=== PATIENT | male | born 1965 | race Caucasian/White ===

== ENCOUNTER → 2018-04-24 11:09 | Outpatient (CLI) | payer OTHER, SELFPAY ==
[2018-04-24 12:00] LABS: ALB/GLOB Ratio 1.3 RATIO (0.9-2.4); AST(SGOT) 23 U/L (15-37); Alanine Aminotransfer ALT/SGPT 39 U/L (16-61); Albumin, Serum 3.9 g/dL (3.2-5.0); Alkaline Phosphatase 56 U/L (45-117); Anion Gap 6 (5-15); BUN 12 mg/dL (7-18); BUN/Creat Ratio 13.8 RATIO (10-20); Calcium,Total 8.8 mg/dL (8.5-10.1); Chloride 105 mmol/L (98-107); Cholesterol 166 mg/dL (200); Creatinine, Serum 0.87 mg/dL (0.70-1.30); EST Glomerular Filtration Rate 98 mL/min (>60); Est Glom Filt Rate - Afr Amer 118 mL/min (>60); Globulin 2.9 g/dL (2.2-4.2); Glucose 93 mg/dL (74-106); High Density Lipoprotein 37 mg/dL; PSA,Total - Annual Screen 0.47 ng/mL (0.00-4.00); Protein, Total 6.8 g/dL (6.4-8.2); Sodium Level 139 mmol/L (136-145); Triglycerides 109 mg/dL; Very Low Density Lipoprotein 22 mg/dL (5-40)
== END ==
PROVIDERS: Family Provider Family Medicine; PCP Family Medicine; Referring Provider Nurse Practitioner Family; Visit Provider Nurse Practitioner Family
DX: Z00.00 Encounter for general adult medical examination without abnormal findings (principal); Z12.5 Encounter for screening for malignant neoplasm of prostate
CPT/HCPCS: 36415; 80053; 80061; 84153; G0103

== ENCOUNTER 2018-06-27 09:14 | Emergency (ER) | payer OTHER, SELFPAY ==
[2018-06-27 09:14] VITALS: BP 165/88; PULSE 64; RESP 18; TEMP 36.6; O2SAT 100; BMI 30.7
--- NOTE | 2018-06-27 09:30 | RAD_ITS ---
STUDY: X-RAY - LEFT WRIST REASON FOR EXAM: Male, 52 years old. INJURY PAIN ANTERIOR SURFACE MID WRIST TECHNIQUE: 3 view(s) of the wrist were obtained. COMPARISON: None. FINDINGS: Normal visualized distal radius and ulna. Normal radiocarpal articulation. Normal distal radioulnar articulation. Normal carpal bones. Normal carpal articulations. Normal carpometacarpal articulation of the thumb. Normal second through fifth carpometacarpal articulations. Normal visualized metacarpal bones. The soft tissue structures are unremarkable. RAD/Wrist min 3 Views IMPRESSION: Normal x-ray examination of the wrist. Electronically Signed: Bertha Alfred MD at 10:10 EST , Service support ,
--- NOTE | 2018-06-27 10:23 | ED.VISSUMM ---
- ER Visit Summary Date of Service: 06/27/18 Chief Complaint: [Left wrist injury] History of Present Illness: The patient is a 52 M [presents the emergency department complaining of pain in his left wrist since last evening around 10 PM. 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 Since that time patient's been having pain with trying to grasp objects and dropping things. Patient complaining of pain over the volar aspect of the wrist. Patient is right-hand dominant.] Physical Examination: [HEENT-PERRLA, EOMI. Cranial nerves II through XII grossly intact. TMs clear. Mucous membranes moist. No adenopathy. Cardiovascular-regular rate and rhythm without murmur or ectopy Lungs-clear to auscultation, chest wall stable without crepitus or subcu emphysema Abdomen-normoactive bowel sounds, soft, nontender, no rebound or rigidity, no peritoneal signs. Extremities-intact ?4, normal range of motion, normal pulses. Left wrist-there is some mild diffuse soft tissue swelling. Patient has tenderness palpation diffusely over the volar carpal bones. Patient able to flex and extend all digits however he has pain with flexion of the index, long, and ring finger. No obvious deformity.] Test Results: [X-ray of the left wrist obtained were negative for fracture dislocation.] Emergency Department Course and Treatment: [Patient was given a wrist splint.] Treatment Plan: [Patient given a prescription for naproxen and [place] for severe pain. Patient given work restrictions.] Disposition: [Discharged home stable condition. Patient advised to follow-up with [facility] for follow-up in 5-7 days.] Impression: [Left wrist sprain] This note was generated with [employer] dictation software. It may contain incorrect words, spelling, and punctuation that were not noted in review of the chart prior to signing ED Disposition - Plan for ED Patient: Chief Complaint: Upper Extremity Injury Referrals: Tristen Garcia MD [Primary Care Provider] -
--- NOTE | 2018-06-27 10:25 | ED.DEP ---
ED Disposition - Plan for ED Patient: Chief Complaint: Upper Extremity Injury Instructions: ED Sprain Wrist Prescriptions: Hydrocodone Bitart/Apap 5-325 [[place] 5MG-325MG] 1 tab PO Q4H PRN PRN 2 Days #10 tab PRN Reason: Pain Naproxen [Naprosyn] 500 mg PO BID PRN #20 tab Referrals: Tristen Garcia MD [Primary Care Provider] - [facility] [GROUP OF PHYSICIANS] - 5-7 Days
--- NOTE | 2018-06-27 10:28 | DCINST.ED_ITS ---
ED Disposition - Plan for ED Patient: Chief Complaint: Upper Extremity Injury Instructions: ED Sprain Wrist Prescriptions: Hydrocodone Bitart/Apap 5-325 [[place] 5MG-325MG] 1 tab PO Q4H PRN PRN 2 Days #10 tab PRN Reason: Pain Naproxen [Naprosyn] 500 mg PO BID PRN #20 tab Referrals: Tristen Garcia MD [Primary Care Provider] - [facility] [GROUP OF PHYSICIANS] - 5-7 Days
[2018-06-27 10:54] VITALS: BP 147/90; PULSE 52; RESP 14; O2SAT 97
--- OUTSIDE RECORDS SUMMARY | 2018-09-01 00:22 | XMS RPT_ITS ---
:1965 Author Organization OHIP Care Team Providers Name Role Phone TRISTEN WATSON Primary Care Unavailable Erika Haro Attending Unavailable Dash Mccall Attending Unavailable TRISTEN WATSON Referring Unavailable Dottie Kwon Attending Unavailable Dottie Kwon Referring Unavailable TRISTEN WATSON Primary Care Unavailable PROBLEMS PROBLEMS DATE TYPE CONDITION / CODE ATTENDING STATUS SOURCE 06/27/2018 Unknown S63.509A - Estrellita, Remus Active [place] Unspecified [facility] unspecified Repository wrist, initial encounter / S63.509A(ICD-10) PROCEDURES PROCEDURES No Procedure Records FoundRESULTS RESULTS URGENT CARE VISIT Observed: 07/02/2018 Status: F Source: ROXIE REPORT 1:47 PM [facility] REPOSITORY [facility] [address] [place] [address] [address] [place] [address] OFFICE VISIT Date of Service: 07/02/18 MR#: [id number] Acct: [id number] Name: SHAVON ATKINS Rep #: [id number] : 1965 Provider: Dash BRICENO Age/Sex: 52/M Location: [facility] Status: Signed Intake Vital Signs07/02/18 Body Mass Index (BMI) 30.7 07/02/18 Height 5 ft 11 in 07/02/18 Weight: 220 lb 07/02/18 Body Mass Index (BMI) 30.7 07/02/18 Blood Pressure 128/86 H Intake Visit Reasons: ED FOLLOW UP Mobile Marketing Specialist Required: No Accompanied by: self Is patient in pain?: No Allergies No Known Allergies Allergy (Verified 07/02/18 13:09) Medications budesonide-formoterol HFA 80 mcg-4.5 mcg/actuation aerosol inhaler 2 puff INHALATION BID 07/02/18 [History Confirmed 07/02/18] nebivolol 2.5 mg tablet 2.5 mg PO DAILY 07/02/18 [History Confirmed 07/02/18] [facility] Medical History Hypertension (Chronic) Family History Other Heart disease Myocardial infarction Social History Smoking Status: Never smoker alcohol intake: current HPI HPI Details: SHAVON ATKINS, is a 52 M who presents to the office today for follow-up of a work-related injury which occurred on 06/26/2018. Patient initially evaluated at [facility] ED and found to have a left wrist sprain after negative imaging. Patient states today that his left wrist pain has completely resolved after having his wrist crack 2 days ago. He denies any numbness/tingling or loss of range of motion to the hand. No other associated symptoms or alleviating/aggravating factors. ROS Const Constitutional: Positive for other (Full ROS completed with pertinent findings in the HPI. Otherwise negative.) Exam Const General: cooperative, healthy appearing Skin General: no rashes or lesions noted Neuro General: alert, CN's II-XI intact bilaterally Extrem General: normal to inspection, full ROM, normal capillary refill, no joint enlargement Other: No pain to palpation of the left wrist. Psych Appearance: grossly normal Mental Status: mental status grossly normal Assessment AND Plan Problems 1. Unspecified sprain of left wrist, initial encounter S63.502A Status Acute Plan [employer] 14 filled out releasing patient back to work today without restrictions. Patient advised he no longer needs a follow-up in this office unless he should have an exacerbation of symptoms or new concerns. Patient verbalized understanding and agreement with all the above. Coding Level of Care Code Off vis,new,level 3 Diagnoses Unspecified sprain of left wrist, initial encounter S63.502A 07/02/18 1347 <Electronically signed by Dash BRICENO> Date Dash BRICENO Cosigner Signature: Date (if applicable) CC: DISCHARGE INSTRUCTION Observed: 06/27/2018 Status: F Source: ROXIE 10:28 AM [facility] REPOSITORY [facility] Medical Records Department [address] [place] [address] Discharge Instruction 06/27/18 1025 MR#: [id number] Acct: [id number] Name: SHAVON ATKINS Rep #: [id number] : 1965 52 From: Erika Haro DO PCP: Tristen Watson MD Status: REG ER ED Disposition - Plan for ED Patient: Chief Complaint: Upper Extremity Injury Instructions: ED Sprain Wrist Prescriptions: Hydrocodone Bitart/Apap 5-325 [[place] 5MG-325MG] 1 tab PO Q4H PRN PRN 2 Days #10 tab PRN Reason: Pain Naproxen [Naprosyn] 500 mg PO BID PRN #20 tab Referrals: Tristen Watson MD [Primary Care Provider] - [facility] [GROUP OF PHYSICIANS] - 5-7 Days What to do if you have Problems For any increased pain, shortness of breath, bleeding, nausea or vomiting, chest pain, or any unexpected problems, contact your Primary Care Provider. Call [facility] ([phone]) or report to the closest Emergency Room. Call 911 if necessary. 06/27/18 1028 <Electronically signed by Erika Haro DO> Date Erika Haro DO Cosigner Signature (If Indicated): Date CC: Tristen Watson MD EMERGENCY DEPARTMENT Observed: 06/27/2018 Status: F Source: MOSCOW SUMMARY 10:25 AM [facility] REPOSITORY [facility] Medical Records Department [address] [place] [address] Emergency Department Summary 06/27/18 1023 MR#: [id number] Acct: [id number] Name: SHAVON ATKINS Rep #: [id number] : 1965 52 From: Erika Haro DO PCP: Tristen Watson MD Status: REG ER - ER Visit Summary Date of Service: 06/27/18 Chief Complaint: [Left wrist injury] History of Present Illness: The patient is a 52 M [presents the emergency department complaining of pain in his left wrist since last evening around 10 PM. 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 Since that time patient's been having pain with trying to grasp objects and dropping things. Patient complaining of pain over the volar aspect of the wrist. Patient is right-hand dominant.] Physical Examination: [HEENT-PERRLA, EOMI. Cranial nerves II through XII grossly intact. TMs clear. Mucous membranes moist. No adenopathy. Cardiovascular-regular rate and rhythm without murmur or ectopy Lungs-clear to auscultation, chest wall stable without crepitus or subcu emphysema Abdomen-normoactive bowel sounds, soft, nontender, no rebound or rigidity, no peritoneal signs. Extremities-intact 4, normal range of motion, normal pulses. Left wrist-there is some mild diffuse soft tissue swelling. Patient has tenderness palpation diffusely over the volar carpal bones. Patient able to flex and extend all digits however he has pain with flexion of the index, long, and ring finger. No obvious deformity.] Test Results: [X-ray of the left wrist obtained were negative for fracture dislocation.] Emergency Department Course and Treatment: [Patient was given a wrist splint.] Treatment Plan: [Patient given a prescription for naproxen and [place] for severe pain. Patient given work restrictions.] Disposition: [Discharged home stable condition. Patient advised to [facility] for follow-up in 5-7 days.] Impression: [Left wrist sprain] This note was generated with [employer] dictation software. It may contain incorrect words, spelling, and punctuation that were not noted in review of the chart prior to signing ED Disposition - Plan for ED Patient: Chief Complaint: Upper Extremity Injury Referrals: Tristen Watson MD [Primary Care Provider] - What to do if you have Problems For any increased pain, shortness of breath, bleeding, nausea or vomiting, chest pain, or any unexpected problems, contact your Primary Care Provider. Call [facility] ([phone]) or report to the closest Emergency Room. Call 911 if necessary. 06/27/18 1025 <Electronically signed by Erika Haro DO> Date Erika Haro DO Cosigner Signature (If Indicated): Date CC: Tristen Watson MD WRIST MIN 3 VIEWS Observed: 06/27/2018 Status: F Source: MOSCOW 9:30 AM [facility] REPOSITORY [facility] Imaging Services [address] [place] [address] Wrist min 3 Views MR#: [id number] Acct: [id number] Name: SHAVON ATKINS Rep #: [id number] : 1965 M 52 From: Bertha Alfred MD PCP: Tristen Watson MD Status: PRE ER Study: Wrist min 3 Views Date of Exam: 06/27/18 Exam# [id number] Ordering Dr: Erika Haro DO STUDY: X-RAY - LEFT WRIST REASON FOR EXAM: Male, 52 years old. INJURY PAIN ANTERIOR SURFACE MID WRIST TECHNIQUE: 3 view(s) of the wrist were obtained. COMPARISON: None. FINDINGS: Normal visualized distal radius and ulna. Normal radiocarpal articulation. Normal distal radioulnar articulation. Normal carpal bones. Normal carpal articulations. Normal carpometacarpal articulation of the thumb. Normal second through fifth carpometacarpal articulations. Normal visualized metacarpal bones. The soft tissue structures are unremarkable. RAD/Wrist min 3 Views IMPRESSION: Normal x-ray examination of the wrist. Electronically Signed: Bertha Alfred MD at 10:10 EST , Service support , CC: Erika Haro DO; Tristen Watson MD Marketing Campaign Analyst: Signed COMPREHENSIVE METABOLIC Collected: 04/24/2018 Status: F Source: ROXIE PROFIL 11:14 AM [facility] REPOSITORY TYPE CODE TESTS RESULT OUT OF RANGE REFERENCE UNITS LAB L501.0100 74-106 mg/dL Normal GLU 93 Result Comment: Please note revised GLUCOSE reference range effective 2017. LAB L501.1000 7-18 mg/dL Normal BUN 12 LAB L501.1100 0.70-1.30 mg/dL Normal CREAT,SERUM 0.87 Result Comment: The validity of the calculated GFR AND GFRAA in patients over 70 years has not been determined. Clinical correlation is essential. LAB L501.1110 >60 mL/min Normal EST GFR 98 Result Comment: Non- GFR Calc LAB L501.1115 >60 mL/min Normal EST GFR - AA 118 Result Comment: GFR Calc LAB L501.1300 10-20 RATIO Normal BUN/CRE 13.8 LAB L501.1500 6.4-8.2 g/dL T Normal PROT 6.8 LAB L501.1800 3.2-5.0 g/dL Normal ALB 3.9 LAB L501.1950 2.2-4.2 g/dL Normal GLOB 2.9 LAB L501.2000 0.9-2.4 RATIO Normal A/G 1.3 LAB L501.2200 8.5-10.1 mg/dL CA Normal 8.8 LAB L501.4100 15-37 U/L Normal AST 23 LAB L501.4305 45-117 U/L Normal ALK P 56 LAB L501.4405 16-61 U/L Normal ALT 39 LAB L501.4600 0.20-1.00 mg/dL T Normal BILI 0.50 LAB L501.5300 136-145 mmol/L NA Normal 139 LAB L501.5600 3.5-5.1 mmol/L K Normal 4.0 LAB L501.5900 98-107 mmol/L CL Normal 105 LAB L501.6100 21.0-32.0 mmol/L Normal CO2 28.0 LAB L501.6200 5-15 Normal GAP 6 Performed By: #### L500.4050, L500.4100, L501.9910 #### [facility] Laboratory [address] [facility] [facility] [place], [address] LIPID PROFILE Collected: 04/24/2018 Status: F Source: MOSCOW 11:14 AM [facility] REPOSITORY TYPE CODE TESTS RESULT OUT OF RANGE REFERENCE UNITS LAB L501.4900 200 mg/dL Normal CHOL 166 Result Comment: <200 mg/dL Desirable 200-240 mg/dL Borderline >240 mg/dL High Risk LAB L501.5000 mg/dL Normal TRIG 109 Result Comment: The drugs N-Acetylcysteine and Metamizole may falsely depress this assay. Serum Triglycerides Reference Interval Normal <150 mg/dL Borderline high 150 - 199 mg/dL High 200 - 499 mg/dL Very High > or = 500 mg/dL LAB L501.6400 mg/dL Low HDL 37 Result Comment: The drugs N-Acetylcysteine and Metamizole may falsely depress this assay. Reference Range HDL <40 mg/dL Low HDL Cholesterol HDL >or= 60 mg/dL High HDL Cholesterol LAB L501.6500 0-130 mg/dL Normal LDL 107 LAB L501.6600 5-40 mg/dL Normal VLDL 22 Performed By: #### L500.4050, L500.4100, L501.9910 #### [facility] Laboratory [address] [place], [address] PSA,TOTAL - ANNUAL Collected: 04/24/2018 Status: F Source: ROXIE SCREEN 11:14 AM [facility] REPOSITORY TYPE CODE TESTS RESULT OUT OF RANGE REFERENCE UNITS LAB L501.9910 0.00-4.00 ng/mL Normal PSA,TOT 0.47 SCREEN Result Comment: This test was performed using the TPSA assay method for the Neuravi chemistry system. Values obtained with different assay methods cannot be used interchangably. When changing PSA assays in the course of monitoring a patient, additional sequential testing should be carried out to confirm baseline values. Performed By: #### L500.4050, L500.4100, L501.9910 #### [facility] Laboratory [address] [place], [address] ALLERGIES ALLERGIES DATE TYPE / CODE NAME / CODE REACTION SEVERITY SOURCE 07/02/2018 Drug No Known Unknown [facility] Allergy/4160 Allergies/F00 Hospital 00596(SNOMED 3338997(RXNOR Repository CT) M) ENCOUNTERS ENCOUNTERS ADMIT/DISCHARGE ACCOUNT ADMITTING ENCOUNTER LOCATION SOURCE NUMBER CLASS 07/02/2018/ [id number] Ambulatory BMSBuilding:B [place] 9 4 [place].NOW [facility] Repository 06/27/2018/ [id number] Emergency Rox[place] 9 3 [facility] ing:ED Repository 04/24/2018 [id number] Ambulatory [place] 9 [facility] ing:LAB Repository PAYERS PAYERS ENCOUNTER GUARANTOR PAYER SUBSCRIBER SOURCE 07/02/2018 SHAVON Luke Primary Insurance:Flavio [id number] [place] [address]Czsfak MARKFERMINDOB: [facility] [place]: [id number] [id number] Repository [address]Otv: (330) Date:0653-42-17SU [phone] () [place], [place] [address]BT: 07/02/2018 Secondary NOT GIVENUNK [place] Insurance:SELF PAY [facility] Number: Effective Repository Date:2018-07-02 06/27/2018 SHAVON L Primary SHAVON L [place] [id number] Insurance:SELF INS MARKLEYDOB: [facility] KASSY [facility] [place] CHATTANOOGAPolicy [id number] [place], [place] Number: Repository [address]Pmx: [phone] [phone] (HP) Date:6569-22-68ELEGM [facility] HOSPITALChandler [facility] [address], [place] [address]FI: 06/27/2018 Secondary SHAVON L [place] Insurance:[facility] OTIS ELYSSAMARIKAB: [facility] [address]blec Number: [id number] Hospital [id number] Repository Date:1648-85-43TZ [address] [place] [phone]: 06/27/2018 Tertiary NOT GIVENUNK [place] Insurance:SELF PAY [facility] Number: Effective Repository Date:2018-06-27 04/24/2018 SHAVON L Primary Insurance:[facility] SHAVON L [place] [id number] [facility] [address]Cjeurr MARKLEYDOB: [facility] KASSY Number: [id number] [id number] Repository [address]Qox: 330) Date:7834-29-89BQ [phone] () [address] [place] [phone]: 04/24/2018 Secondary NOT GIVENUNK [place] Insurance:SELF PAY [facility] Number: Effective Repository Date:2018-04-24
== END 2018-06-27 10:55 | disposition home or self-care (01) ==
LOC: ED 10:12
PROVIDERS: Emergency Provider Emergency Medicine; Family Provider Family Medicine; PCP Family Medicine
DX: S63.502A Unspecified sprain of left wrist, initial encounter (principal); X50.1XXA Overexertion from prolonged static or awkward postures, initial encounter; Y93.89 Activity, other specified; Y92.9 Unspecified place or not applicable; Y99.0 Civilian activity done for income or pay; J45.909 Unspecified asthma, uncomplicated; I10 Essential (primary) hypertension; Z79.899 Other long term (current) drug therapy
CPT/HCPCS: 73110; 99283

== ENCOUNTER → 2019-08-11 11:14 | Outpatient (CLI) | payer OTHER, SELFPAY ==
[2018-07-02 13:23] VITALS: BMI 30.7
[2019-08-11 12:03] LABS: ALB/GLOB Ratio 1.2 RATIO (0.9-2.4); AST(SGOT) 25 U/L (15-37); Alanine Aminotransfer ALT/SGPT 47 U/L (16-61); Alkaline Phosphatase 64 U/L (45-117); Anion Gap 7 (5-15); BUN 14 mg/dL (7-18); BUN/Creat Ratio 14.8 RATIO (10-20); Calcium,Total 9.6 mg/dL (8.5-10.1); Chloride 103 mmol/L (98-107); Cholesterol 201 mg/dL (200); Creatinine, Serum 0.94 mg/dL (0.70-1.30); EST Glomerular Filtration Rate 88 mL/min (>60); Est Glom Filt Rate - Afr Amer 107 mL/min (>60); Globulin 3.3 g/dL (2.2-4.2); Glucose 100 mg/dL (74-106); High Density Lipoprotein 40 mg/dL; PSA,Total - Annual Screen 0.46 ng/mL (0.00-4.00); Potassium 4.1 mmol/L (3.5-5.1); Protein, Total 7.3 g/dL (6.4-8.2); Sodium Level 138 mmol/L (136-145); Triglycerides 157 mg/dL; Very Low Density Lipoprotein 31 mg/dL (5-40)
== END ==
PROVIDERS: PCP Family Medicine; Referring Provider Nurse Practitioner Family; Visit Provider Nurse Practitioner Family
DX: E78.2 Mixed hyperlipidemia (principal); Z12.5 Encounter for screening for malignant neoplasm of prostate
CPT/HCPCS: 36415; 80053; 80061; 84153; G0103

== ENCOUNTER → 2020-05-19 06:41 | Outpatient (CLI) | payer OTHER, SELFPAY ==
[2019-09-25 11:38] VITALS: BMI 30.7
--- NOTE | 2020-05-21 13:12 | STRESSREP_ITS ---
Stress Test Report Date: 05/19/2020 Procedure: Pharmacologic stress nuclear imaging study Indications: Chest pain Consent: Per the patient Procedure: The patient underwent pharmacologic (Regadenoson) evaluation with a peak heart rate of 72 beats per minute (43%predicted maximal heart rate) and a peak blood pressure of 146/78 mmHg. The baseline ECG demonstrated normal sinus rhythm. EKG during lexiscan infusion revealed no significant ischemic changes. EKG post infusion revealed no significant ischemic changes [There were no cardiac dysrhythmias pretest, during pharmacologic infusion, or recovery]. [There was no complaint of chest discomfort during pharmacologic infusion or recovery]. The examination was discontinued secondary to completion of protocol. Impression: 1. Lexiscan stress test test is negative for Lexiscan infusion induced EKG changes of ischemia. 2. Lexiscan stress test test is negative for Lexiscan infusion induced chest pain. 3. Results of the nuclear portion of the test is as below Myocardial perfusion imaging study: Technique: The patient was injected with 14.3 millicuries of technetium 99m Cardiolite and subsequently rest SPECT Cardiolite nuclear imaging was obtained in the horizontal long, vertical long, and short axis views. The patient underwent pharmacologic (Regadenoson) evaluation. Please see above for details. The patient was injected with 44.6 millicuries of technetium 99m Cardiolite and subsequently stress SPECT Cardiolite nuclear imaging was obtained in the horizontal long, vertical long, and short axis views. A gated Cardiolite study at peak stress was obtained. Interpretation: Rest and stress SPECT Cardiolite nuclear imaging status post realignment, normalization, and attenuation correction demonstrate normal myocardial radioisotope uptake. Gated images reveal no significant regional wall motion abnormalities. The reported LVEF is 69%. Impression: 1. There is no evidence of significant ischemia or infarction. 2. Estimated ejection fraction is 69%. This note was generated with [employer] software. It may contain incorrect words, spelling, and punctuation that were not noted in checking the note before signing.
== END ==
PROVIDERS: PCP Family Medicine; Referring Provider Family Medicine; Visit Provider Family Medicine
DX: R07.89 Other chest pain (principal); R06.02 Shortness of breath; E78.2 Mixed hyperlipidemia
CPT/HCPCS: 78452; 93017; A9500; A4216; J2785

== ENCOUNTER → 2021-04-04 06:35 | Outpatient (CLI) | payer OTHER, SELFPAY ==
[2021-04-04 07:52] LABS: ALB/GLOB Ratio 1.2 RATIO (0.9-2.4); AST(SGOT) 20 U/L (15-37); Alanine Aminotransfer ALT/SGPT 34 U/L (16-61); Albumin, Serum 3.6 g/dL (3.2-5.0); Alkaline Phosphatase 52 U/L (45-117); Anion Gap 5 (5-15); BUN 12 mg/dL (7-18); BUN/Creat Ratio 14.5 RATIO (10-20); Calcium,Total 9.2 mg/dL (8.5-10.1); Chloride 109 mmol/L (98-107); Cholesterol 183 mg/dL (200); Creatinine, Serum 0.83 mg/dL (0.70-1.30); EST Glomerular Filtration Rate 103 mL/min (>60); Est Glom Filt Rate - Afr Amer 124 mL/min (>60); Glucose 93 mg/dL (74-106); High Density Lipoprotein 44 mg/dL; PSA,Total - Annual Screen 0.52 ng/mL (0.00-4.00); Potassium 4.1 mmol/L (3.5-5.1); Protein, Total 6.6 g/dL (6.4-8.2); Sodium Level 142 mmol/L (136-145); Triglycerides 138 mg/dL; Very Low Density Lipoprotein 28 mg/dL (5-40)
== END ==
PROVIDERS: PCP Family Medicine; Referring Provider Family Medicine; Visit Provider Family Medicine
DX: Z13.1 Encounter for screening for diabetes mellitus (principal); Z12.5 Encounter for screening for malignant neoplasm of prostate; E78.2 Mixed hyperlipidemia
CPT/HCPCS: 36415; 80053; 80061; 84153; G0103

== ENCOUNTER → 2022-05-19 | Outpatient (CLI) | payer OTHER, SELFPAY ==
[2022-05-19 08:58] LABS: ALB/GLOB Ratio 1.3 RATIO (0.9-2.4); AST(SGOT) 20 U/L (15-37); Alanine Aminotransfer ALT/SGPT 43 U/L (16-61); Alkaline Phosphatase 55 U/L (45-117); Anion Gap 4 (5-15); BUN 15 mg/dL (7-18); BUN/Creat Ratio 16.5 RATIO (10-20); Calcium,Total 9.8 mg/dL (8.5-10.1); Chloride 104 mmol/L (98-107); Cholesterol 183 mg/dL (200); Creatinine, Serum 0.91 mg/dL (0.70-1.30); EST Glomerular Filtration Rate 92 mL/min (>60); Est Glom Filt Rate - Afr Amer 111 mL/min (>60); Glucose 94 mg/dL (74-106); High Density Lipoprotein 34 mg/dL; PSA,Total - Annual Screen 0.45 ng/mL (0.00-4.00); Potassium 4.4 mmol/L (3.5-5.1); Sodium Level 137 mmol/L (136-145); Triglycerides 127 mg/dL; Very Low Density Lipoprotein 25 mg/dL (5-40)
== END | disposition home or self-care (01) ==
LOC: LAB 06:55
PROVIDERS: PCP Family Medicine; Visit Provider Family Medicine
DX: E78.2 Mixed hyperlipidemia (principal); Z12.5 Encounter for screening for malignant neoplasm of prostate
CPT/HCPCS: 36415; 80053; 80061; 84153; G0103

== ENCOUNTER 2022-12-08 05:29 | Day surgery (SDC) | payer OTHER, SELFPAY ==
[2022-12-08 05:58] VITALS: BP 139/85; PULSE 51; RESP 18; TEMP 36.4; O2SAT 96; BMI 28.7
[2022-12-08] MEDS: Lactated Ringers 1,000 ML 15 ML IV (06:13)
--- NOTE | 2022-12-08 06:30 | COLBX_PTH ---
PATIENT: SHAOVN ATKINS LOC: EN U#:[id number] AGE/SX: 57/M ROOM: RE12/08/[address]: Dr. Dusty Woodard DO : 1965 BED: DIS: 12/08/2022 SPEC #: [id number] RECD: 12/08/22 12:09 STATUS: ELAINE CURRY #: [id number] LEONELA: 12/08/22 06:[address]: Dusty Woodard DEPT: SURGICAL PATHOLOGY RECD BY: Evelyn Lange ENTERED: 12/08/22 12:57 SP TYPE: COLON BX NIKO DR: Dr. Magdiel Mendoza DO Tissues: A - COLON BIOPSY B - Transverse colon C - Sigmoid colon biopsy D - COLON BIOPSY E - Rectum, NOS Procedures: Surgery Specimen Level IV HEADER OPERATION: Colonoscopy (MAC), polypectomy PRE-OP DIAGNOSIS: Positive Cologuard test TISSUE SUBMITTED: A - Hepatic flexure polyp, B - Transverse colon polyp, C - Sigmoid colon polyp, D - Splenic flexure polyp, E - Rectal polyp MICROSCOPIC DIAGNOSIS A. 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 See comment. B. Transverse colon polyp, biopsy: Tubulovillous adenoma. C. Sigmoid colon polyp, biopsy: Tubular adenoma. D. Colonic polyp at splenic flexure, biopsy: Fragments of tubular adenoma. E. Rectal polyp, biopsy: Fragments of tubular adenoma. AM:jessi 12/11/2022 COMMENT A. Focal high-grade dysplasia is present close to the luminal surface. Case has been reviewed in consultation with Dr. Gaviria who concurs with the above diagnosis. IDC:SJ MICROSCOPIC DESCRIPTION Slides are reviewed. GROSS DESCRIPTION A - Received in fixative is one container labeled with the patient's name and designated hepatic flexure polyp. The specimen consists of multiple irregular fragments of pink-chaves soft tissue that in aggregate measure 2.5 x 1.8 x 1.2 cm. The two larger fragments are bisected and submitted long with the smaller fragments in two cassettes as follows: 1 - largest fragment, bisected, 2 - second largest fragment, inked and remainder of specimen. B - Received in fixative is one container labeled with the patient's name and designated transverse colon polyp. The specimen consists of multiple irregular and polypoid fragments of pink-chaves soft tissue ranging in size from 0.1 to 3.0 cm in aggregate measuring 9.5 x 2.0 x 2.0 cm. The specimen is totally submitted in ten cassettes as follows: 1-4 - smaller fragments, 5 & 6 - second largest fragment, serially sectioned, 710 - largest fragment, serially sectioned. Note, no distinct stalk is identified. C - Received in fixative is one container labeled with the patient's name and designated sigmoid colon polyp. The specimen consists of a polypoid fragment of chaves tissue measuring 1.0 x 0.7 x 0.3 cm. The specimen is bisected and totally submitted in one cassette. D - Received in fixative is one container labeled with the patient's name and designated splenic flexure polyp. The specimen consists of a polypoid fragment of chaves tissue measuring 1.0 x 0.6 x 0.3 cm. The specimen is bisected and totally submitted in one cassette. E - Received in fixative is one container labeled with the patient's name and designated rectal polyp. The specimen consists of multiple irregular fragments of light chaves soft tissue that in aggregate measure 1.5 x 0.5 x 0.1 cm. The specimen is totally submitted in one cassette. / AM:jessi 12/08/2022 TC:1 CPT: 64159 x5
--- NOTE | 2022-12-08 06:31 | HP.PCM_ITS ---
History and Physical Date of Admission: 12/08/22 56 M who presents to the office today for positive Cologuard. No prior colonoscopy. At the time of the cologuard he was having some abd discomfort which he thinks was due to naprosyn which he was taking for back pain, after stopping the nsaid the abd discomfort resolved. No nausea, vomiting, dysphagia, heartburn, acid reflux, abd pain, diarrhea, constipation, melena, hematochezia. 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 ROS Const Constitutional: No fatigue, fever(s), frequent falls, headache(s) or weight change ENT ENT: No headache(s) or difficulty swallowing Cardio Cardiology: No leg pain with exertion Gastro GI: No abdominal pain, bloating, change in bowel habits, constipation, diarrhea, heartburn, difficulty swallowing, Vomiting blood/hematemesis, Blood in stool, nausea/dyspepsia or vomiting Musc Musculoskeletal: No abnormal gait, joint pain, back pain, joint swelling, muscle cramps, muscle weakness, numbness, stiffness, tingling, Arthritis, sciatica, leg pain at night or leg pain with exertion Skin Skin: No dry skin, lesions, itchy eyes or rash Neuro Neurology: No abnormal gait, dizziness, frequent falls, headache(s), numbness, tingling, tremor(s), Increased tone in limbs, paralysis or seizures Psych Psychiatric: No anxiety, No depression, No paranoia, No Behavioral Problems, No Compulsive Behavior, No hyperactivity, No inattentiveness, No obsessions/compulsions, No Temper Tantrums and No suicidal ideation Endo Endocrine: No fatigue or weight change Aller/Imm Allergy/Immunologic: No itchy eyes Jeffrey/Lymp Hematologic/Lymphatic: No easy bleeding or easy bruising Exam Const General: cooperative and comfortable Nutritional Appearance: overweight Orientation: alert, awake and oriented x3 Quality Reporting Tobacco Screening ([facility]) Smoking Status: Never smoker Assessment and Plan Assessment and Plan (1) Positive colorectal cancer screening using Cologuard test: Status: Acute Plan: He will be scheduled for colonoscopy w/ office f/u 2 wks later I have examined the patient and the H&P has been reviewed. There are no clinical changes since date of exam.
[2022-12-08 07:49] VITALS: BP 114/73; BP 139/85; PULSE 46; RESP 18; TEMP 35.9; O2SAT 95
[2022-12-08 07:50] VITALS: BP 107/72; BP 139/85; PULSE 48; RESP 18; O2SAT 100
--- NOTE | 2022-12-08 07:53 | OP.COLON_ITS ---
Patient Name: Rafael Ace Procedure Date: 12/08/2022 6:19 AM Date of : 1965 Age: 57 Procedure: Colonoscopy Indications: Screening for colorectal malignant neoplasm Providers: Dusty Woodard DO Referring MD: Dusty Woodard DO Medicines: Monitored Anesthesia Care Patient Profile: This is a 57 year old male. Refer to note in patient chart for documentation of history and physical. Last Colonoscopy: none. The patient's first colonoscopy is today. Complications: No immediate complications. Procedure: Pre-Anesthesia Assessment: - Prior to the procedure, a History and Physical was performed, and patient medications and allergies were reviewed. The patient is competent. The risks and benefits of the procedure and the sedation options and risks were discussed with the patient. All questions were answered and informed consent was obtained. Patient identification and proposed procedure were verified by the physician. Mental Status Examination: normal. Prophylactic Antibiotics: The patient does not require prophylactic antibiotics. Prior Anticoagulants: The patient has taken no previous anticoagulant or antiplatelet agents. After reviewing the risks and benefits, the patient was deemed in satisfactory condition to undergo the procedure. The anesthesia plan was to use minimal sedation / analgesia (anxiolysis). Immediately prior to administration of medications, the patient was re-assessed for adequacy to receive sedatives. The heart rate, respiratory rate, oxygen saturations, blood pressure, adequacy of pulmonary ventilation, and response to care were monitored throughout the procedure. The physical status of the patient was re-assessed after the procedure. After I obtained informed consent, the scope was passed under direct vision. Throughout the procedure, the patient's blood pressure, pulse, and oxygen saturations were monitored continuously. The colonoscope was introduced through the anus and advanced to the cecum, identified by appendiceal orifice and ileocecal valve. The colonoscopy was performed without difficulty. The patient tolerated the procedure well. The quality of the bowel preparation was adequate. Scope In: 6:39:47 AM Scope Withdrawal Time 0 hours 58 minutes 16 seconds Scope Out: 7:41:44 AM Total Procedure Duration Time 1 hour 1 minute 57 seconds Findings: The perianal and digital rectal examinations were normal. Multiple sessile polyps were found in the rectum, sigmoid colon, splenic flexure, transverse colon and hepatic flexure. The polyps were 1 to 2 mm in size. These polyps were removed with a hot snare. Resection and retrieval were complete. Verification of patient identification for the specimen was done. To prevent bleeding post-intervention, three hemostatic clips were successfully placed. There was no bleeding at the end of the procedure. Area was successfully injected with 5 mL Karen ink for tattooing. Estimated blood loss was minimal. Impression: - Multiple 1 to 2 mm polyps in the rectum, in the sigmoid colon, at the splenic flexure, in the transverse colon and at the hepatic flexure, removed with a hot snare. Resected and retrieved. Clips were placed. Injected. Recommendation: - Repeat colonoscopy in 1 year for surveillance. - Continue present medications. Procedure Code(s): --- Professional --- 21494, Colonoscopy, flexible; with removal of tumor(s), polyp(s), or other lesion(s) by snare technique 68157, Colonoscopy, flexible; with directed submucosal injection(s), any substance CPT copyright 2017 [employer]. All rights reserved. The codes documented in this report are preliminary and upon senior care assistant review may be revised to meet current compliance requirements. Dusty Woodard DO 12/08/2022 7:52:05 AM This report has been signed electronically. Number of Addenda: 0 Note Initiated On: 12/08/2022 6:19 AM
--- NOTE | 2022-12-08 07:53 | OP.CCLET_ITS ---
12/08/2022 Magdiel Mendoza Re : Colonoscopy procedure for Rafael Mendoza This procedure was performed on Thursday, December 08, 2022. My impressions and recommendations are as follows: Impressions : - Multiple 1 to 2 mm polyps in the rectum, in the sigmoid colon, at the splenic flexure, in the transverse colon and at the hepatic flexure, removed with a hot snare. Resected and retrieved. Clips were placed. Injected. Recommendations : - Repeat colonoscopy in 1 year for surveillance. - Continue present medications. My findings are described in the full procedure note, which is enclosed. If I can be of further assistance, please feel free to contact me at . Sincerely, Dusty Woodard, 12/08/2022 7:52:05 AM This report has been signed electronically.
[2022-12-08 07:55] VITALS: BP 110/75; BP 139/85; PULSE 55; RESP 18
[2022-12-08 08:02] VITALS: BP 128/74; BP 139/85; PULSE 47; RESP 18; TEMP 36.2; O2SAT 100
[2022-12-08 08:28] VITALS: BP 139/85
== END 2022-12-08 08:52 | disposition home or self-care (01) ==
LOC: EN 05:32 → AC 05:33
PROVIDERS: PCP Family Medicine; Referring Provider Family Medicine; Visit Provider Internal Medicine Gastroenterology
PROC: 0DJD8ZZ Inspection of Lower Intestinal Tract, Via Natural or Artificial Opening Endoscopic (ICD-10-PCS; CPT 45378; principal; 2022-12-08 06:25)
DX: Z12.11 Encounter for screening for malignant neoplasm of colon (principal); D12.3 Benign neoplasm of transverse colon; D12.5 Benign neoplasm of sigmoid colon; D12.8 Benign neoplasm of rectum; R19.5 Other fecal abnormalities; I10 Essential (primary) hypertension; E78.5 Hyperlipidemia, unspecified; E66.3 Overweight; Z68.28 Body mass index [BMI] 28.0-28.9, adult; Z79.899 Other long term (current) drug therapy
CPT/HCPCS: 45385; 45381; 88305; J7120; A4648; J2405

== ENCOUNTER → 2023-01-08 | Outpatient (CLI) | payer OTHER, SELFPAY ==
--- NOTE | 2023-01-08 16:00 | CT_ITS ---
EXAM: CT ABDOMEN AND PELVIS WITH INTRAVENOUS CONTRAST CLINICAL INDICATION: large polyp with high grade dysplagia TECHNIQUE: Helically acquired images were obtained of the abdomen and pelvis with intravenous contrast. This CT exam was performed using one or more of the following dose reduction techniques: automated exposure control, adjustment of the mA and/or kV according to patient size, and/or use of iterative reconstruction technique. CONTRAST: 100 cc of Isovue-300 IV. With oral contrast. RADIATION DOSE: CTDIvol = 13.31 mGy, DLP = 840.00 mGy-cm COMPARISON: No relevant prior studies available. FINDINGS: LOWER THORAX: Unremarkable. Lung bases are clear. No cardiomegaly. No significant pericardial effusion. ABDOMEN: LIVER: Unremarkable. Homogeneous. No focal mass. GALLBLADDER AND BILE DUCTS: Unremarkable. No calcified gallstones. No gallbladder distention or wall edema. No intra- or extrahepatic biliary ductal dilation. PANCREAS: Unremarkable. No focal cystic or solid mass. SPLEEN: Unremarkable. Normal size without focal cystic or solid mass. ADRENALS: Unremarkable. No nodules. KIDNEYS AND URETERS: Unremarkable. Normal renal size and position. No hydronephrosis. STOMACH AND BOWEL: Unremarkable. No stomach or bowel distention. No focal inflammatory change. PELVIS: APPENDIX: Normal appendix. BLADDER: Unremarkable. REPRODUCTIVE: Unremarkable as visualized. No mass. ABDOMEN and PELVIS: INTRAPERITONEAL SPACE: Unremarkable. No ascites or other fluid collection. No free air. BONES/JOINTS: Unremarkable. No suspicious lytic or blastic abnormality. SOFT TISSUES: Unremarkable. No discrete abdominal or pelvic wall hernia. VASCULATURE: Unremarkable. Abdominal aorta is non-dilated. LYMPH NODES: Mild mesenteric edema multiple borderline enlarged lymph nodes in the jejunal mesentery. CT/Abdomen/Pelvis WITH Contrast IMPRESSION: Mild mesenteric edema multiple borderline enlarged lymph nodes in the jejunal mesentery. Differential diagnosis includes mesenteric panniculitis, lymphoma, and vascular disorders. Electronically Signed: Roby Bolaños MD at 4:49 EDT ,
[2023-01-08 16:39] LABS: CREATININE FINGERSTICK 1.2 mg/dL (0.70-1.30); EGFR FINGERSTICK > 60.0000 mL/min (>60)
== END | disposition home or self-care (01) ==
PROVIDERS: PCP Family Medicine; Referring Provider Internal Medicine Gastroenterology; Visit Provider Internal Medicine Gastroenterology
DX: K63.5 Polyp of colon (principal)
CPT/HCPCS: 74177; Q9967; A4216

== ENCOUNTER → 2023-02-07 | Outpatient (CLI) | payer OTHER, SELFPAY ==
[2023-02-07 15:57] LABS: Erythrocyte Sedimentation Rate 4 mm/hr (0-20)
[2023-02-07 16:00] LABS: Absolute Lymphocyte Count 1.81 X10^3/uL (0.83-4.51); Basophil# 0.05 X10^3/uL; Basophil% 0.7 % (0-1); Eosinophil# 0.44 X10^3/uL; Eosinophils% 6.5 % (0-5); Hemoglobin 14.1 g/dL (13.0-16.5); Lymphocyte # 1.81 X10^3/ul (0.83-4.51); Lymphocyte % 26.9 % (19-41); Mean Corpuscular Hgb 30.5 pg (27.0-32.0); Mean Platelet Vol. 9.1 fl (6.2-12.0); Monocyte# 0.44 X10^3/uL; Monocyte% 6.5 % (0-10); NRBC Flagged by Analyzer 0 % (0-5); Neutrophil # 3.97 X10^3/uL (2.7-7.7); Neutrophil % 59.1 % (47-70); Platelet Count 216 K/mm3 (150-450); RBC Distribution Width CV 13.7 % (11.6-14.6); RBC Distribution Width SD 47.8 fl (35.1-43.9); Red Blood Count 4.63 M/mm3 (4.6-6.2); White Blood Count 6.7 K/mm3 (4.4-11.0)
[2023-02-07 16:27] LABS: ALB/GLOB Ratio 1.2 RATIO (0.9-2.4); AST(SGOT) 20 U/L (15-37); Alanine Aminotransfer ALT/SGPT 39 U/L (16-61); Albumin, Serum 3.7 g/dL (3.2-5.0); Alkaline Phosphatase 63 U/L (45-117); Anion Gap 6 (5-15); BUN 18 mg/dL (7-18); BUN/Creat Ratio 18.1 RATIO (10-20); CRP < 2.90 mg/L (0.0-3.0); Calcium,Total 9.9 mg/dL (8.5-10.1); Chloride 108 mmol/L (98-107); Creatinine, Serum 0.99 mg/dL (0.70-1.30); EST Glomerular Filtration Rate 82 mL/min (>60); Est Glom Filt Rate - Afr Amer 100 mL/min (>60); Globulin 3.1 g/dL (2.2-4.2); Glucose 113 mg/dL (74-106); LDH 193 U/L (87-241); Protein, Total 6.8 g/dL (6.4-8.2); Sodium Level 140 mmol/L (136-145)
[2023-02-09 12:09] LABS: Anti-Centromere B Ab <0.2 AI (0.0-0.9); Anti-Chromatin <0.2 AI (0.0-0.9); Anti-Jo <0.2 AI (0.0-0.9); Anti-Scleroderma-70 AB <0.2 AI (0.0-0.9); Anti-dsDNA Ab <1 IU/mL (0-9); RNP Ab <0.2 AI (0.0-0.9); SJOGREN'S Anti-SS-A test < 0.2 AI (0.0-0.9); SJOGREN'S Anti-SS-B test < 0.2 AI (0.0-0.9); Smith Ab <0.2 AI (0.0-0.9)
[2023-02-13 03:06] LABS: Albumin 3.8 g/dL (2.9-4.4); Alpha-1-Globulins 0.2 g/dL (0.0-0.4); Alpha-2-Globulins 0.7 g/dL (0.4-1.0); Cytoplasmic Ab (C-ANCA) <1:20 titer (Neg:<1:20); Endomysial Antibody IgA Negative (Negative); Gamma Globulin 0.7 g/dL (0.4-1.8); Immunoglobulin A 102 mg/dL (90-386); Immunoglobulin E 71 IU/mL (6-495); Immunoglobulin G 699 mg/dL (603-1613); Immunoglobulin M 48 mg/dL (20-172); PROEL- TOTAL PROTEIN 6.3 g/dL (6.0-8.5); Perinuclear Ab (P-ANCA) <1:20 titer (Neg:<1:20); t-Transglutaminase IgA <2 U/mL (0-3)
== END | disposition home or self-care (01) ==
PROVIDERS: PCP Family Medicine; Referring Provider Internal Medicine Gastroenterology; Visit Provider Internal Medicine Gastroenterology
DX: R93.5 Abnormal findings on diagnostic imaging of other abdominal regions, including retroperitoneum (principal)
CPT/HCPCS: 36415; 80053; 82784; 82785; 83516; 83615; 84165; 85025; 85652; 86140; 86225; 86235; 86255; 86256; 86334

== ENCOUNTER → 2023-02-28 | Outpatient (CLI) | payer OTHER, SELFPAY ==
[2023-03-07 15:09] LABS: Calprotectin, Stool 26 ug/g (0-120)
== END | disposition home or self-care (01) ==
LOC: LABSPEC 15:29
PROVIDERS: PCP Family Medicine; Referring Provider Internal Medicine Gastroenterology; Visit Provider Internal Medicine Gastroenterology
DX: R93.5 Abnormal findings on diagnostic imaging of other abdominal regions, including retroperitoneum (principal)
CPT/HCPCS: 83630; 83993

== ENCOUNTER 2023-03-01 06:44 | Day surgery (SDC) | payer OTHER, SELFPAY ==
[2023-03-01] VITALS (7 sets, daily range): BP systolic 98–138; BP diastolic 68–93; PULSE 43–52; RESP 16–18; TEMP 36.2–36.8; O2SAT 94–95; BMI 29.9
--- NOTE | 2023-03-01 | IMM_PTH ---
PATIENT: SHAVON ATKINS LOC: EN U#:[id number] AGE/SX: 57/M ROOM: RE03/01/[address]: Dr. Dusty Woodard DO : 1965 BED: DIS: 03/01/2023 SPEC #: [id number] RECD: 03/07/23 14:06 STATUS: ELAINE RESimona #: [id number] LEONELA: 03/01/23 00:[address]: Dusty Woodard DEPT: IMMUNOHISTOCHEMISTRY RECD BY: Renae Lopez ENTERED: 03/07/23 14:07 SP TYPE: IMMUNO OTHR DR: Dr. Magdiel Mendoza DO Tissues: A - Esophagus, NOS Procedures: P53 (initial) KI-67 (add) PHYSICIAN & INSTITUTION [place] [address] SPECIMEN INFORMATION: Tissue Source: A - Distal esophagus Clinical Info: History of colon polyps Specimen Number: [id number] CPT code: 78006, 55022 METHODOLOGY: Deparaffinized sections of prefer/formalin-fixed tissue or PAP/DQ stained slides are incubated with monoclonal/polyclonal antibodies/oligonucleotide probes. Localization is made via biotin free immunoperoxidase method. Appropriate controls are performed and reacted as expected. Results on target cell population are indicated in the following table: RESULTS: ANTIBODY / CLONE RESULT Block A P53 (DO-7) negative (null pattern) Ki-67 (30-9) positive, low These tests were developed and their performance characteristics determined by [facility]. They may not have been cleared or approved by the U.S. Food and Drug Administration. The FDA has determined that such clearance or approval is not necessary. The above immunohistochemical/dualISH markers are ordered and reviewed by the Pathologist. INTERPRETATION: A. Distal esophagus, biopsy: Negative for dysplasia. CYDNEY:jessi 03/08/2023
--- NOTE | 2023-03-01 | COLBX_PTH ---
PATIENT: SHAVON ATKINS LOC: EN U#:[id number] AGE/SX: 57/M ROOM: RE03/01/[address]: Dr. Dusty Woodard DO : 1965 BED: DIS: 03/01/2023 SPEC #: [id number] RECD: 03/01/23 09:30 STATUS: ELAINE CURRY #: [id number] LEONELA: 03/01/23 00:[address]: Dusty Woodard DEPT: SURGICAL PATHOLOGY RECD BY: Louis Baldwin ENTERED: 03/01/23 12:29 SP TYPE: COLON BX OTHR DR: Dr. Magdiel Mendoza DO Tissues: A - Esophagus, NOS B - Duodenum, NOS C - Sigmoid colon biopsy D - SPLENIC FLEXURE E - COLON BIOPSY F - Rectum, NOS Procedures: Surgery Specimen Level IV HEADER OPERATION: Colonoscopy, EGD, biopsy PRE-OP DIAGNOSIS: History colon polyps TISSUE SUBMITTED: A - Distal esophagus biopsy, B - Duodenal polyp biopsy, C - Sigmoid polyp biopsy, D - Splenic flexure polypectomy site biopsy, E - Hepatic flexure polyp biopsy, F - Rectal polyp MICROSCOPIC DIAGNOSIS A. Distal esophagus, biopsy: Fragments of gastroesophageal mucosa with focal intestinal metaplasia (goblet cell metaplasia), consistent with Amin's esophagus. Chronic inflammation. Negative for dysplasia. See comment. B. Duodenal polyp, biopsy: Fragments of duodenal mucosa with Phillip gland hyperplasia. C. Sigmoid polyp, biopsy: Tubular adenoma. D. Splenic flexure polypectomy site, biopsy: Fragments of colonic mucosa, no pathologic diagnosis. E. Hepatic flexure polyp, biopsy: Tubular adenoma. F. Rectal polyp, biopsy: Hyperplastic polyp. SJ:jessi 03/02/2023 COMMENT A. Alcian blue/PAS stain with matched control is used in the evaluation of the specimen. Immunohistochemistry ([id number]) for P53 and Ki-67 will be performed and results will be reported separately. Increased number of eosinophils (>25 per high power field), favor eosinophilic esophagitis. Please make reference to previous specimen ([id number]) colonic polyp at hepatic flexure, biopsy with diagnosis of fragments of tubulovillous adenoma with focal high-grade dysplasia and transverse colon polyp, biopsy with diagnosis of tubulovillous adenoma and sigmoid colon polyp with diagnosis of tubular adenoma and colonic polyp at splenic flexure with diagnosis of fragments of tubular adenoma. MICROSCOPIC DESCRIPTION Slides are reviewed. GROSS DESCRIPTION A - Received in fixative is one container labeled with the patient's name and designated distal esophagus. The specimen consists of two irregular fragments of light chaves soft tissue that in aggregate measure 0.8 x 0.3 x 0.1 cm. The specimen is totally submitted in one cassette. B - Received in fixative is one container labeled with the patient's name and designated duodenal polyp. The specimen consists of multiple irregular fragments of light chaves soft tissue that in aggregate measure 1.0 x 0.6 x 0.1 cm. The specimen is totally submitted in one cassette. C - Received in fixative is one container labeled with the patient's name and designated sigmoid polyp. The specimen consists of one irregular fragment of light chaves soft tissue that measures 0.5 x 0.5 x 0.1 cm. The specimen is totally submitted in one cassette. D - Received in fixative is one container labeled with the patient's name and designated splenic flexure polyp. The specimen consists of multiple irregular fragments of light chaves soft tissue that in aggregate measure 0.7 x 0.7 x 0.1 cm. The specimen is totally submitted in one cassette. E - Received in fixative is one container labeled with the patient's name and designated hepatic flexure polyp. The specimen consists of one irregular fragment of light chaves soft tissue that measures 0.5 x 0.3 x 0.1 cm. The specimen is totally submitted in one cassette. F - Received in fixative is one container labeled with the patient's name and designated rectal polyp biopsy. The specimen consists of one irregular fragment of light chaves soft tissue that measures 0.5 x 0.3 x 0.1 cm. The specimen is totally submitted in one cassette. / CYDNEY:jessi 03/01/2023 TC: CPT: 20976 x6, 61750
[2023-03-01] MEDS: Lactated Ringers 1,000 ML 15 ML IV (07:19)
--- NOTE | 2023-03-01 07:47 | PCM.HP.BLA ---
History and Physical Date of Admission: 03/01/23 positive Cologuard Details: SHAVON ATKINS, is a 56 M who presents to the office today for positive Cologuard. No prior colonoscopy. At the time of the cologuard he was having some abd discomfort which he thinks was due to naprosyn which he was taking for back pain, after stopping the nsaid the abd discomfort resolved. No nausea, vomiting, dysphagia, heartburn, acid reflux, abd pain, diarrhea, constipation, melena, hematochezia. 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 ROS Const Constitutional: No fatigue, fever(s), frequent falls, headache(s) or weight change ENT ENT: No headache(s) or difficulty swallowing Cardio Cardiology: No leg pain with exertion Gastro GI: No abdominal pain, bloating, change in bowel habits, constipation, diarrhea, heartburn, difficulty swallowing, Vomiting blood/hematemesis, Blood in stool, nausea/dyspepsia or vomiting Musc Musculoskeletal: No abnormal gait, joint pain, back pain, joint swelling, muscle cramps, muscle weakness, numbness, stiffness, tingling, Arthritis, sciatica, leg pain at night or leg pain with exertion Skin Skin: No dry skin, lesions, itchy eyes or rash Neuro Neurology: No abnormal gait, dizziness, frequent falls, headache(s), numbness, tingling, tremor(s), Increased tone in limbs, paralysis or seizures Psych Psychiatric: No anxiety, No depression, No paranoia, No Behavioral Problems, No Compulsive Behavior, No hyperactivity, No inattentiveness, No obsessions/compulsions, No Temper Tantrums and No suicidal ideation Endo Endocrine: No fatigue or weight change Aller/Imm Allergy/Immunologic: No itchy eyes Jeffrey/Lymp Hematologic/Lymphatic: No easy bleeding or easy bruising Exam Const General: cooperative and comfortable Nutritional Appearance: overweight Orientation: alert, awake and oriented x3 Quality Reporting Tobacco Screening ([facility] 138) Smoking Status: Never smoker Assessment and Plan Assessment and Plan (1) Positive colorectal cancer screening using Cologuard test: Status: Acute Plan: He will be scheduled for colonoscopy w/ office f/u 2 wks later I have examined the patient and the H&P has been reviewed. There are no clinical changes since date of exam.
--- NOTE | 2023-03-01 08:35 | OP.EGD_ITS ---
Patient Name: Rafael Ace Procedure Date: 03/01/2023 7:40 AM Date of : 1965 Age: 57 Procedure: Upper GI endoscopy Indications: Epigastric abdominal pain, Functional Dyspepsia, Heartburn Providers: Dusty Woodard DO Medicines: Monitored Anesthesia Care Patient Profile: This is a 57 year old male. Refer to note in patient chart for documentation of history and physical. Patient has symptoms. Patient has symptoms of chronic epigastric abdominal pain and chronic heartburn. Complications: No immediate complications. Procedure: Pre-Anesthesia Assessment: - Prior to the procedure, a History and Physical was performed, and patient medications and allergies were reviewed. The risks and benefits of the procedure and the sedation options and risks were discussed with the patient. All questions were answered and informed consent was obtained. Patient identification and proposed procedure were verified by the physician in the pre-procedure area. Mental Status Examination: alert and oriented. Airway Examination: normal oropharyngeal airway and neck mobility. Respiratory Examination: clear to auscultation. CV Examination: normal. Prophylactic Antibiotics: The patient does not require prophylactic antibiotics. Prior Anticoagulants: The patient has taken no anticoagulant or antiplatelet agents. After reviewing the risks and benefits, the patient was deemed in satisfactory condition to undergo the procedure. The anesthesia plan was to use monitored anesthesia care (MAC). Immediately prior to administration of medications, the patient was re-assessed for adequacy to receive sedatives. The heart rate, respiratory rate, oxygen saturations, blood pressure, adequacy of pulmonary ventilation, and response to care were monitored throughout the procedure. The physical status of the patient was re-assessed after the procedure. After obtaining informed consent, the endoscope was passed under direct vision. Throughout the procedure, the patient's blood pressure, pulse, and oxygen saturations were monitored continuously. The Colonoscope was introduced through the mouth, and advanced to the second part of duodenum. The upper GI endoscopy was accomplished without difficulty. The patient tolerated the procedure well. Scope In: 7:52:13 AM Scope Out: 7:59:22 AM Total Procedure Duration Time 0 hours 7 minutes 9 seconds Findings: The Z-line was irregular and was found 40 cm from the incisors. Biopsies were taken with a cold forceps for histology. Verification of patient identification for the specimen was done. Estimated blood loss was minimal. No gross lesions were noted in the entire examined stomach. A single 5 mm pedunculated and sessile polyp was found in the second portion of the duodenum. Biopsies were taken with a cold forceps for histology. Verification of patient identification for the specimen was done. Impression: - Z-line irregular, 40 cm from the incisors. Biopsied. - No gross lesions in the entire stomach. - A single duodenal polyp. Biopsied. Recommendation: - Discharge patient to home. - Resume previous diet. - Continue present medications. - Await pathology results. Procedure Code(s): --- Professional --- 22361, Esophagogastroduodenoscopy, flexible, transoral; with biopsy, single or multiple CPT copyright 2021 [employer]. All rights reserved. The codes documented in this report are preliminary and upon highway traffic control technician review may be revised to meet current compliance requirements. Dusty Woodard DO 03/01/2023 8:35:07 AM This report has been signed electronically. Number of Addenda: 0 Note Initiated On: 03/01/2023 7:40 AM
--- NOTE | 2023-03-01 08:35 | OP.CCLET_ITS ---
03/01/2023 Magdiel Mendoza Re : Upper GI endoscopy procedure for Rafael Gomezr This procedure was performed on February. My impressions and recommendations are as follows: Impressions : - Z-line irregular, 40 cm from the incisors. Biopsied. - No gross lesions in the entire stomach. - A single duodenal polyp. Biopsied. Recommendations : - Discharge patient to home. - Resume previous diet. - Continue present medications. - Await pathology results. My findings are described in the full procedure note, which is enclosed. If I can be of further assistance, please feel free to contact me at . Sincerely, Dusty Woodard, 03/01/2023 8:35:07 AM This report has been signed electronically.
--- NOTE | 2023-03-01 08:40 | OP.CCLET_ITS ---
03/01/2023 Magdiel Mendoza Re : Colonoscopy procedure for Rafael Mendoza This procedure was performed on February. My impressions and recommendations are as follows: Impressions : - Preparation of the colon was fair. - Three 1 to 2 mm polyps in the rectum and at the hepatic flexure, removed with a cold snare. Resected and retrieved. - A tattoo was seen at the splenic flexure. The tattoo site appeared normal. Biopsied. Recommendations : - Written discharge instructions were provided to the patient. - The signs and symptoms of potential delayed complications were discussed with the patient. - Patient has a contact number available for emergencies. - Return to normal activities tomorrow. - Resume previous diet. - Continue present medications. - Await pathology results. - Repeat colonoscopy in 1 year for surveillance. My findings are described in the full procedure note, which is enclosed. If I can be of further assistance, please feel free to contact me at . Sincerely, Dusty Woodard, 03/01/2023 8:40:01 AM This report has been signed electronically.
--- NOTE | 2023-03-01 08:40 | OP.COLON_ITS ---
Patient Name: Rafael Ace Procedure Date: 03/01/2023 8:00 AM Date of : 1965 Age: 57 Procedure: Colonoscopy Indications: High risk colon cancer surveillance: Personal history of colonic polyps, Last colonoscopy: November 2022 Providers: Dusty Woodard DO Medicines: Monitored Anesthesia Care Patient Profile: This is a 57 year old male. Refer to note in patient chart for documentation of history and physical. Patient has symptoms. Patient has symptoms of chronic epigastric abdominal pain and chronic heartburn. Refer to note in patient chart for documentation of history and physical. Last Colonoscopy: within the past 3 months. Complications: No immediate complications. Procedure: Pre-Anesthesia Assessment: - Prior to the procedure, a History and Physical was performed, and patient medications and allergies were reviewed. The risks and benefits of the procedure and the sedation options and risks were discussed with the patient. All questions were answered and informed consent was obtained. Patient identification and proposed procedure were verified by the physician in the pre-procedure area. Mental Status Examination: alert and oriented. Airway Examination: normal oropharyngeal airway and neck mobility. Respiratory Examination: clear to auscultation. CV Examination: normal. Prophylactic Antibiotics: The patient does not require prophylactic antibiotics. Prior Anticoagulants: The patient has taken no anticoagulant or antiplatelet agents. After reviewing the risks and benefits, the patient was deemed in satisfactory condition to undergo the procedure. The anesthesia plan was to use monitored anesthesia care (MAC). Immediately prior to administration of medications, the patient was re-assessed for adequacy to receive sedatives. The heart rate, respiratory rate, oxygen saturations, blood pressure, adequacy of pulmonary ventilation, and response to care were monitored throughout the procedure. The physical status of the patient was re-assessed after the procedure. After I obtained informed consent, the scope was passed under direct vision. Throughout the procedure, the patient's blood pressure, pulse, and oxygen saturations were monitored continuously. The Colonoscope was introduced through the anus and advanced to the cecum, identified by appendiceal orifice and ileocecal valve. The colonoscopy was performed without difficulty. The patient tolerated the procedure well. The quality of the bowel preparation was fair. Scope In: 8:01:58 AM Scope Withdrawal Time 0 hours 18 minutes 26 seconds Scope Out: 8:26:05 AM Total Procedure Duration Time 0 hours 24 minutes 7 seconds Findings: The perianal and digital rectal examinations were normal. Three sessile polyps were found in the rectum and hepatic flexure. The polyps were 1 to 2 mm in size. These polyps were removed with a cold snare. Resection and retrieval were complete. Verification of patient identification for the specimen was done. Estimated blood loss was minimal. A tattoo was seen at the splenic flexure. The tattoo site appeared normal. Biopsies were taken with a cold forceps for histology. Verification of patient identification for the specimen was done. Estimated blood loss was minimal. Impression: - Preparation of the colon was fair. - Three 1 to 2 mm polyps in the rectum and at the hepatic flexure, removed with a cold snare. Resected and retrieved. - A tattoo was seen at the splenic flexure. The tattoo site appeared normal. Biopsied. Recommendation: - Written discharge instructions were provided to the patient. - The signs and symptoms of potential delayed complications were discussed with the patient. - Patient has a contact number available for emergencies. - Return to normal activities tomorrow. - Resume previous diet. - Continue present medications. - Await pathology results. - Repeat colonoscopy in 1 year for surveillance. Procedure Code(s): --- Professional --- 22820, Colonoscopy, flexible; with removal of tumor(s), polyp(s), or other lesion(s) by snare technique 35922, 59, Colonoscopy, flexible; with biopsy, single or multiple CPT copyright 2021 [employer]. All rights reserved. The codes documented in this report are preliminary and upon strike warfare/missile systems officer review may be revised to meet current compliance requirements. Dusty Woodard DO 03/01/2023 8:40:01 AM This report has been signed electronically. Number of Addenda: 0 Note Initiated On: 03/01/2023 8:00 AM
== END 2023-03-01 09:07 | disposition home or self-care (01) ==
LOC: EN 06:44 → AC 06:45
PROVIDERS: PCP Family Medicine; Referring Provider Internal Medicine Gastroenterology; Visit Provider Internal Medicine Gastroenterology
PROC: 0DJD8ZZ Inspection of Lower Intestinal Tract, Via Natural or Artificial Opening Endoscopic (ICD-10-PCS; CPT 45378; principal; 2023-03-01 07:40)
DX: Z12.11 Encounter for screening for malignant neoplasm of colon (principal); K20.0 Eosinophilic esophagitis; K62.1 Rectal polyp; D12.3 Benign neoplasm of transverse colon; D12.5 Benign neoplasm of sigmoid colon; K31.89 Other diseases of stomach and duodenum; R19.5 Other fecal abnormalities; I10 Essential (primary) hypertension; E78.5 Hyperlipidemia, unspecified; E66.3 Overweight; Z68.29 Body mass index [BMI] 29.0-29.9, adult; Z79.899 Other long term (current) drug therapy; Z86.010 Personal history of colon polyps
CPT/HCPCS: 45380; 45385; 43239; 88305; 88341; 88342; J7120; J2405

== ENCOUNTER → 2023-05-04 | Outpatient (CLI) | payer OTHER, SELFPAY ==
[2023-05-04 11:26] LABS: ALB/GLOB Ratio 1.2 RATIO (0.9-2.4); AST(SGOT) 21 U/L (15-37); Alanine Aminotransfer ALT/SGPT 43 U/L (16-61); Albumin, Serum 3.8 g/dL (3.2-5.0); Alkaline Phosphatase 63 U/L (45-117); Anion Gap 5 (5-15); BUN 13 mg/dL (7-18); BUN/Creat Ratio 14.3 RATIO (10-20); Calcium,Total 9.6 mg/dL (8.5-10.1); Chloride 106 mmol/L (98-107); Cholesterol 200 mg/dL (200); Creatinine, Serum 0.91 mg/dL (0.70-1.30); EST Glomerular Filtration Rate 92 mL/min (>60); Est Glom Filt Rate - Afr Amer 111 mL/min (>60); Globulin 3.1 g/dL (2.2-4.2); Glucose 91 mg/dL (74-106); High Density Lipoprotein 41 mg/dL; PSA,Total - Annual Screen 0.56 ng/mL (0.00-4.00); Potassium 4.6 mmol/L (3.5-5.1); Protein, Total 6.9 g/dL (6.4-8.2); Sodium Level 138 mmol/L (136-145); Triglycerides 157 mg/dL; Very Low Density Lipoprotein 31 mg/dL (5-40)
== END | disposition home or self-care (01) ==
PROVIDERS: PCP Family Medicine; Referring Provider Internal Medicine Gastroenterology; Visit Provider Internal Medicine Gastroenterology
DX: Z00.00 Encounter for general adult medical examination without abnormal findings (principal); Z12.5 Encounter for screening for malignant neoplasm of prostate
CPT/HCPCS: 36415; 80053; 80061; 84153; G0103

== ENCOUNTER → 2024-04-17 | Outpatient (CLI) | payer OTHER, SELFPAY ==
[2024-04-17 09:08] LABS: ALB/GLOB Ratio 1.2 RATIO (0.9-2.4); AST(SGOT) 23 U/L (15-37); Alanine Aminotransfer ALT/SGPT 44 U/L (16-61); Albumin, Serum 3.9 g/dL (3.2-5.0); Alkaline Phosphatase 67 U/L (45-117); Anion Gap 3 (5-15); BUN 12 mg/dL (7-18); Calcium,Total 9.8 mg/dL (8.5-10.1); Chloride 107 mmol/L (98-107); Cholesterol 195 mg/dL (200); EST Glomerular Filtration Rate 106 mL/min (>60); Est Glom Filt Rate - Afr Amer 128 mL/min (>60); Globulin 3.3 g/dL (2.2-4.2); Glucose 105 mg/dL (74-106); High Density Lipoprotein 45 mg/dL; Potassium 4.3 mmol/L (3.5-5.1); Protein, Total 7.2 g/dL (6.4-8.2); Sodium Level 137 mmol/L (136-145); Triglycerides 136 mg/dL; Very Low Density Lipoprotein 27 mg/dL (5-40)
== END | disposition home or self-care (01) ==
LOC: LAB 07:36
PROVIDERS: PCP Family Medicine; Referring Provider Family Medicine; Visit Provider Family Medicine
DX: Z00.00 Encounter for general adult medical examination without abnormal findings (principal); Z12.5 Encounter for screening for malignant neoplasm of prostate
CPT/HCPCS: 36415; 80053; 80061

== ENCOUNTER 2024-06-20 12:48 | Day surgery (SDC) | payer BC, SELFPAY ==
[2024-06-20] VITALS (8 sets, daily range): BP systolic 96–155; BP diastolic 65–97; PULSE 45–55; RESP 14–16; TEMP 36.2–37.2; O2SAT 92–98; BMI 31.4
--- NOTE | 2024-06-20 | IMM_PTH ---
PATIENT: SHAVON ATKINS LOC: EN U#:[id number] AGE/SX: 58/M ROOM: RE06/20/[address]: Dr. Dusty Woodard DO : 1965 BED: DIS: 06/20/2024 SPEC #: [id number] RECD: 06/25/24 09:57 STATUS: ELAINE REQ #: [id number] LEONELA: 06/20/24 00:[address]: Dusty Woodard DEPT: IMMUNOHISTOCHEMISTRY RECD BY: Claude Rocha ENTERED: 06/25/24 09:57 SP TYPE: IMMUNO OTHR DR: Dr. Magdiel Mendoza DO Tissues: A - Esophagus, NOS Procedures: P53 (initial) KI-67 (add) PHYSICIAN & INSTITUTION [place] [id number] SPECIMEN INFORMATION: Tissue Source: A- Distal esophagus biopsy Clinical Info: Amin's esophagus, tubulovillous adenoma of colon Specimen Number: [id number] Umair CPT code: 61098,77775 METHODOLOGY: Deparaffinized sections of prefer/formalin-fixed tissue or PAP/DQ stained slides are incubated with monoclonal/polyclonal antibodies/oligonucleotide probes. Localization is made via biotin free immunoperoxidase method. Appropriate controls are performed and reacted as expected. Results on target cell population are indicated in the following table: RESULTS: ANTIBODY / CLONE RESULT Block A P53 (DO-7) negative (null pattern) Ki-67 (30-9) positive, low These tests were developed and their performance characteristics determined by [facility]. They may not have been cleared or approved by the U.S. Food and Drug Administration. The FDA has determined that such clearance or approval is not necessary. The above immunohistochemical/dualISH markers are ordered and reviewed by the Pathologist. INTERPRETATION: A. Distal esophagus, biopsy: Negative for dysplasia. 06/25/2024
--- NOTE | 2024-06-20 13:55 | PRE.ANES_ITS ---
ASA Classification* ASA Classification ASA Classification: 2 Assessment & Plan Anesthesia* Anesthesia Assessment Anesthesia Assessment: Discussed sedation and/or anesthesia options, risks, benefits, and alternatives with patient/parents/legal guardian/POA. Questions invited. The patient/parents/legal guardian/POA seems to understand and agrees to proceed with anesthesia plan. Reviewed the physical assessment, medical history, allergy history and patient home medications list prior to surgery/procedure/anesthetic and documented any changes. Performed airway and anesthesia risk assessments. Anesthesia Type Anesthesia Type: MAC History Source History Obtained from:: Patient and Chart Anesthesia Focused Assessment* Temperature: 99 F Pulse Rate: 55 Blood Pressure: 155/97 Respiratory Rate: 16 Pulse Ox: 95 Oxygen Delivery Method: Room Air Airway Assessment Mouth opens: >3 cm Mallampati Score: I Teeth Condition: Upper (Patient had multiple upper implants. All tight.) Neck Range of motion (ROM): Full ROM Focused Labs Anesthesia Preop lab: CBC WBC 6.7 K/mm3 (4.4-11.0) 02/07/23 15:03 RBC 4.63 M/mm3 (4.6-6.2) 02/07/23 15:03 Hgb 14.1 g/dL (13.0-16.5) 02/07/23 15:03 Hct 44.0 % (40-54) 02/07/23 15:03 Plt Count 216 K/mm3 (150-450) 02/07/23 15:03 CHEMISTRY Potassium 4.3 mmol/L (3.5-5.1) 04/17/24 07:48 Sodium 137 mmol/L (136-145) 04/17/24 07:48 BUN 12 mg/dL (7-18) 04/17/24 07:48 Creatinine 0.80 mg/dL (0.70-1.30) 04/17/24 07:48 Glucose 105 mg/dL (74-106) 04/17/24 07:48 COAG Pre-Assessment Diagnosis/Proposed Procedure Planned Operative Procedure(s): EGD, COLONOSCOPY Anesthesia History Anesthesia History - public health informatician: Anesthesia History - public health informatician Hx Hospitalization No 06/19/24 08:48 Any Problems With Anesthesia No 06/19/24 08:48 Cholinesterase deficiency No 06/19/24 08:48 You/Your Family Experience No 06/19/24 08:48 fever (hyperthermia) with Relationship Recent Exposure to Contagious No 06/20/24 13:25 Disease Does patient have nerve No 06/19/24 08:48 stimulator Patient instructed to have device shut off --Does patient have Pacemaker No 06/20/24 13:25 or ICD? When Was Last Pacemaker Check QUESTION #4 FULL TEXT: You/Your Family Experience fever (hyperthermia) with Anesthesia Last Oral Intake Last Oral intake: Last Oral Intake NPO since 08:00 06/20/24 13:25 Meds taken in AM with sips of water? Meds patient instructed to take am of surgery Any additional information?: Yes NPO since: 08:00 (Patient finished his prep at 8 AM.) Meds taken in AM with sips of water?: Yes PONV PONV - public health informatician: PONV - public health informatician Female No 06/19/24 08:48 HX of Motion Sickness No 06/19/24 08:48 HX of N/V After Surgery No 06/19/24 08:48 Non-Smoker No 06/19/24 08:48 Duration of Surgery greater No 06/19/24 08:48 than 60 minutes Number of Risk Factors PONV Score Height & Weight Height & Weight: Anesthesia: Height & Weight Height 6 ft 06/20/24 13:25 Weight: 105 kg 06/20/24 13:25 Body Mass Index (BMI) 31.4 06/20/24 13:25 Respiratory Assessment Respiratory Assessment - public health informatician: Respiratory Tract Infection Hx - public health informatician Hx Respiratory Tract Infection Yes: GETTING OVER IT 06/19/24 08:48 Any additional information?: Yes Hx Respiratory Tract Infection: Yes (Patient had runny nose last week. Resolving at this point) STOP Sleep Apnea STOP Sleep Apnea - public health informatician: STOP Sleep Apnea - public health informatician Hx Hypertension Yes 06/19/24 08:48 Hx Sleep Apnea No 06/19/24 08:48 CPAP BIPAP Do you snore loudly (louder No 06/19/24 08:48 than talking or can be heard Do you often feel tired/ No 06/19/24 08:48 fatigued/ sleepy during daytime? Has anyone observed you stop No 06/19/24 08:48 breathing during sleep? STOP Results Negative 06/19/24 08:48 QUESTION #5 FULL TEXT : Do you snore loudly (louder than talking or can be heard through closed doors)? 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 Specify any problems Hx of Preganancy in last 3 N/A 06/19/24 08:48 Months Nurse Filling Out Transfusion [facility] 06/19/24 08:48 & Questions: Date: 06/19/24 06/19/24 08:48 Time: 08:56 06/19/24 08:48 Patient unable to answer at this time (ie. confused, unrespo /Reproduction History /Reproductive History - public health informatician: /Reproductive Hx- public health informatician Hx Now Gestational Age (in weeks): EDC: Hx Hx Para Hx Section SAB No 02/27/23 10:29 [facility] Medical History High cholesterol Chewing tobacco nicotine dependence Loss of hearing Anxiety Alcohol use Back pain Injury of back Asthma Leg cramps History of stress test Positive colorectal cancer screening using Cologuard test Reactive airway disease Allergic rhinitis HLD (hyperlipidemia) Hypertension Home Medications ?Medication ?Instructions ?Recorded ?Last Taken ?Type montelukast 10 mg tablet 10 mg PO DAILY 06/14/22 06/20/24 History simvastatin 20 mg tablet 20 mg PO QHS 06/14/22 06/20/24 History nebivolol 10 mg tablet 10 mg PO DAILY 12/08/22 06/20/24 History albuterol 90 mcg-budesonide 80 2 inh inhalation ONCE 12/08/23 Unknown History mcg/actuation HFA aerosol inhaler (Airsupra) amlodipine 5 mg tablet 5 mg PO QDAY 12/08/23 06/20/24 History fluticasone fur. 200 mcg-umeclid 1 inh inhalation DAILY 12/08/23 06/20/24 His tory 62.5 mcg-vilant 25 mcg inhalat.powder (Trelegy Ellipta) Allergy/AdvReac Type Severity Reaction Status Date / Time procaine (From Novocain) Allergy Mild Rash Verified 06/20/24 13:24 hydrocodone (From Vicodin) AdvReac Intermediate Other Verified 06/20/24 13:24 Family History Other Heart disease Myocardial infarction Surgical History Hx of colonoscopy with polypectomy Hx of wisdom tooth extraction Hx of oral surgery Social History Smoking Status: Current some day smoker tobacco type: smokeless tobacco Smokeless tobacco user: chewing tobacco alcohol intake: current alcohol intake frequency: a few times a week Review of Systems (Anesthesia) ROS Narrative System reviewed and no additional complaints, except as documented.
--- NOTE | 2024-06-20 13:58 | HP.PCM_ITS ---
HPI - General General Date of Admission: 06/20/24 Date of Service: 06/20/24 Chief Complaint: Amin's esophagus HPI Narrative SHAVON ATKINS, is a 58 M who presents for surveillance of his Amin's esophagus via EGD. *I established 09.01.22 for positive Cologuard. Some mild abdominal discomfort likely r/t Naprosyn being taken at that time. ? Colonoscopy 12.08.22 multiple sessile TA polyps, clips placed for hemostatic control, tattooed. Hepatic flexure polyp with focal high-grade dysplasia. ? CT abd/pel 01.09.23 mild mesenteric edema with multiple borderline enlarged lymph nodes of jejunal mesentery, mesenteric panniculitis v lymphoma v vascular disorder. Contact, 01.17.23 get bloodwork, add EGD and offered sooner appointment for that. ? Biochemical CBC, ESR, CMP, LDH, CRP, GAME, JAY comp, ANCA, RUPINDER, celiac, IBD without pertinent abnormality. Contact 02.27.23 with biochemical results. Proceed with EGD/colonoscopy ? Stool calprotectin, lactoferrin WNL ? EGD and Colonoscopy 03.01.23 EGD irregular Zline, metaplasia +; single pedunculated/sessile duodenal polyp. ? Colonoscopy fair prep; three sessile TA/hyperplastic polyps; tattoo seen with normal appearance, normal pathology. OV 10.10.31 without any GI difficulty [facility] Medical History High cholesterol Chewing tobacco nicotine dependence Loss of hearing Anxiety Alcohol use Back pain Injury of back Asthma Leg cramps History of stress test Positive colorectal cancer screening using Cologuard test Reactive airway disease Allergic rhinitis HLD (hyperlipidemia) Hypertension Home Medications ?Medication ?Instructions ?Recorded ?Last Taken ?Type montelukast 10 mg tablet 10 mg PO DAILY 06/14/22 06/20/24 History simvastatin 20 mg tablet 20 mg PO QHS 06/14/22 06/20/24 History nebivolol 10 mg tablet 10 mg PO DAILY 12/08/22 06/20/24 History albuterol 90 mcg-budesonide 80 2 inh inhalation ONCE 12/08/23 Unknown History mcg/actuation HFA aerosol inhaler (Airsupra) amlodipine 5 mg tablet 5 mg PO QDAY 12/08/23 06/20/24 History fluticasone fur. 200 mcg-umeclid 1 inh inhalation DAILY 12/08/23 06/20/24 History 62.5 mcg-vilant 25 mcg inhalat.powder (Trelegy Ellipta) Allergy/AdvReac Type Severity Reaction Status Date / Time procaine (From Novocain) Allergy Mild Rash Verified 06/20/24 13:24 hydrocodone (From Vicodin) AdvReac Intermediate Other Verified 06/20/24 13:24 Family History Other Heart disease Myocardial infarction Surgical History Hx of colonoscopy with polypectomy Hx of wisdom tooth extraction Hx of oral surgery Social History Smoking Status: Current some day smoker tobacco type: smokeless tobacco Smokeless tobacco user: chewing tobacco alcohol intake: current alcohol intake frequency: a few times a week ROS Constitutional Constitutional: Denies fatigue, fever(s), poor appetite, weight gain or weight loss Gastrointestinal Gastrointestinal: Denies belching, bloating, change in bowel habits, change in stool character, chewing difficulty, coffee ground emesis, constipation, cramping, diarrhea, dyspepsia, dysphagia, early satiety, excessive flatus, fecal incontinence, heartburn, hematemesis, hematochezia, hemorrhoids, loose stools, melena, nausea, odynophagia, rectal bleeding, tenesmus, vomiting or weight changes Vital Signs Vital Signs Vital Signs: 06/20/24 13:25 06/20/24 13:25 Temperature 99 F Temperature Source Temporal Pulse Rate 55 L Respiratory Rate 16 Respiratory Pattern Normal Blood Pressure 155/97 H Blood Pressure Mean 116 Blood Pressure Source Monitor Blood Pressure Position Semi-Fowlers Blood Pressure Location Right Arm Pulse Ox 95 Oxygen Delivery Method Room Air Weight Weight: 231 lb 7.766 oz Body Mass Index (BMI) 31.4 Physical Exam Const alert, oriented x3, no apparent distress and healthy appearing General Appearance: cooperative GI normal to inspection, nondistended, normoactive bowel sounds, soft to palpation, non-tender and non-distended Percussion: normal to percussion Rectal Exam: deferred Assessment & Plan Assessment/Plan (1) Amin esophagus: QUALIFIERS: Amin's esophagus type: with high grade dysplasia Qualified Code(s): K22.711 - Amin's esophagus with high grade dysplasia PLAN: He will undergo surveillance of his Amin's esophagus. He was explained alternatives, risks, benefits include not withstanding bleeding, infection, sepsis, perforation, need for emergent urgent . He will have an ASA of 3. (2) Tubulovillous adenoma of colon: PLAN: He will also undergo surveillance colonoscopy because his last colonoscopy which was approximately 16 months ago had multiple adenomatous polyps that were removed. He was explained alternatives, risk and benefits include not withstanding bleeding, infection, sepsis, perforation, need for charge and . He will have an ASA of 3.
--- NOTE | 2024-06-20 14:30 | COLBX_PTH ---
PATIENT: SHAVON ATKINS LOC: EN U#:[id number] AGE/SX: 58/M ROOM: RE06/20/[address]: Dr. Dusty Woodard DO : 1965 BED: DIS: 06/20/2024 SPEC #: [id number] RECD: 06/20/24 17:02 STATUS: ELAINE CURRY #: [id number] LEONELA: 06/20/24 14:[address]: Dusty Woodard DEPT: SURGICAL PATHOLOGY RECD BY: Louis Baldwin ENTERED: 06/23/24 07:36 SP TYPE: COLON BX OTHR DR: Dr. Magdiel Mendoza DO Tissues: A - Esophagus, NOS B - COLON BIOPSY C - Sigmoid colon biopsy D - Rectum, NOS Procedures: Special Stain Group I Surgery Specimen Level IV Alcian Blue/PAS (control) HEADER OPERATION: Colonoscopy, EGD, biopsy, polypectomy PRE-OP DIAGNOSIS: Amin's esophagus, tubulovillous adenoma of colon TISSUE SUBMITTED: A- Distal esophagus biopsy, B- Hepatic flexure polyp biopsy, C- Sigmoid polyp biopsy, D- Rectal polyp MICROSCOPIC DIAGNOSIS A. Distal esophagus, biopsy: Fragments of gastroesophageal mucosa with focal intestinal metaplasia (goblet cell metaplasia), consistent with Amin's esophagus. Chronic inflammation. Negative for dysplasia. See comment. B. Hepatic flexure polyp, biopsy: Fragments of tubular adenoma. C. Sigmoid polyp, biopsy: Fragments of tubular adenoma. Hyperplastic polyp. D. Rectal polyp, polypectomy: Tubulovillous adenoma. SJ. 06/24/2024 COMMENT A. Alcian blue/PAS stain with matched control is used in the evaluation of the specimen. Immunohistochemistry ([id number]) for P53 and Ki-67 will be performed and results will be reported separately. MICROSCOPIC DESCRIPTION Slides are reviewed. GROSS DESCRIPTION A. Received in fixative is one container labeled with the patient's name and designated Distal esophagus biopsy. The specimen consists of multiple irregular fragments of light chaves soft tissue that in aggregate measure 1.2 x 0.4 x 0.1 cm. The specimen is totally submitted in one cassette. B. Received in fixative is one container labeled with the patient's name and designated Hepatic flexure polyp biopsy. The specimen consists of multiple irregular fragments of light chaves soft tissue that in aggregate measure 1.0 x 0.3 x 0.1 cm. The specimen is totally submitted in one cassette. C. Received in fixative is one container labeled with the patient's name and designated Sigmoid polyp biopsy. The specimen consists of multiple irregular fragments of light chaves soft tissue that in aggregate measure 1.0 x 0.3 x 0.1 cm. The specimen is totally submitted in one cassette. D. Received in fixative is one container labeled with the patient's name and designated Rectal polyp. The specimen consists of a pink-red polyp measuring 1.5 x 1.4 x 1.0 cm. The presumed base is inked. The polyp is serially sectioned and submitted entirely in one cassette. SJ.mr 06/23/2024 TC:1 CPT:27586b7,09223
--- NOTE | 2024-06-20 15:29 | OP.EGD_ITS ---
Patient Name: Rafael Ace Procedure Date: 06/20/2024 2:45 PM Date of : 1965 Age: 58 Procedure: Upper GI endoscopy Indications: Follow-up of Amin's esophagus Providers: Dusty Woodard DO Referring MD: Magdiel Mendoza Medicines: Monitored Anesthesia Care Patient Profile: This is a 58 year old male. Refer to note in patient chart for documentation of history and physical. Patient has symptoms of chronic heartburn. Complications: No immediate complications. Procedure: Pre-Anesthesia Assessment: - Prior to the procedure, a History and Physical was performed, and patient medications and allergies were reviewed. The patient is competent. The risks and benefits of the procedure and the sedation options and risks were discussed with the patient. All questions were answered and informed consent was obtained. Patient identification and proposed procedure were verified by the physician in the pre-procedure area. Mental Status Examination: alert and oriented. Airway Examination: normal oropharyngeal airway and neck mobility. Respiratory Examination: clear to auscultation. CV Examination: normal. Prophylactic Antibiotics: The patient does not require prophylactic antibiotics. Prior Anticoagulants: The patient has taken no anticoagulant or antiplatelet agents except for NSAID medication. ASA Grade Assessment: II - A patient with mild systemic disease. After reviewing the risks and benefits, the patient was deemed in satisfactory condition to undergo the procedure. The anesthesia plan was to use minimal sedation / analgesia (anxiolysis). Immediately prior to administration of medications, the patient was re-assessed for adequacy to receive sedatives. The heart rate, respiratory rate, oxygen saturations, blood pressure, adequacy of pulmonary ventilation, and response to care were monitored throughout the procedure. The physical status of the patient was re-assessed after the procedure. After obtaining informed consent, the endoscope was passed under direct vision. Throughout the procedure, the patient's blood pressure, pulse, and oxygen saturations were monitored continuously. The colonoscope was introduced through the mouth, and advanced to the second part of duodenum. The upper GI endoscopy was accomplished without difficulty. The patient tolerated the procedure well. Scope In: 2:51:18 PM Scope Out: 2:54:54 PM Total Procedure Duration Time 0 hours 3 minutes 36 seconds Findings: There were esophageal mucosal changes secondary to established short-segment Amin's disease present in the lower third of the esophagus. The maximum longitudinal extent of these mucosal changes was 2 cm in length. Mucosa was biopsied with a cold forceps for histology in a targeted manner at intervals of 1 cm in the lower third of the esophagus. One specimen bottle was sent to pathology. Verification of patient identification for the specimen was done. Estimated blood loss was minimal. A small hiatal hernia was present. No gross lesions were noted in the first portion of the duodenum. Impression: - Esophageal mucosal changes secondary to established short-segment Amin's disease. Biopsied. - Small hiatal hernia. - No gross lesions in the first portion of the duodenum. Recommendation: - Discharge patient to home. - Resume previous diet. - Continue present medications. - Await pathology results. - Repeat upper endoscopy in 2 years for surveillance. Procedure Code(s): --- Professional --- 46543, Esophagogastroduodenoscopy, flexible, transoral; with biopsy, single or multiple CPT copyright 2021 [employer]. All rights reserved. The codes documented in this report are preliminary and upon stone finisher review may be revised to meet current compliance requirements. Dsuty Woodard DO 06/20/2024 3:29:14 PM This report has been signed electronically. Number of Addenda: 0 Note Initiated On: 06/20/2024 2:45 PM
--- NOTE | 2024-06-20 15:29 | OP.CCLET_ITS ---
06/20/2024 Magdiel Mendoza Re : Upper GI endoscopy procedure for Rafael Gomezr This procedure was performed on Thursday, June 20, 2024. My impressions and recommendations are as follows: Impressions : - Esophageal mucosal changes secondary to established short-segment Amin's disease. Biopsied. - Small hiatal hernia. - No gross lesions in the first portion of the duodenum. Recommendations : - Discharge patient to home. - Resume previous diet. - Continue present medications. - Await pathology results. - Repeat upper endoscopy in 2 years for surveillance. My findings are described in the full procedure note, which is enclosed. If I can be of further assistance, please feel free to contact me at . Sincerely, Dusty Woodard, 06/20/2024 3:29:14 PM This report has been signed electronically.
--- NOTE | 2024-06-20 15:30 | PCM.POST.ANE ---
Anesthesia: Postop Eval I Current Vital Signs Temperature: 97.1 F Pulse Rate: 51 Blood Pressure: 100/67 Respiratory Rate: 14 Pulse Ox: 92 Oxygen Delivery Method: Room Air Assessment Airway patent: Yes Spontaneous unlabored respirations: Yes Mental status: Asleep nausea: No Vomiting: No Anesthesia Complication: No Fluid Hydration Crystalloid volume administer (ml): 65 Total IV fluid infused: 65 Progress Note Anesthesia document: Postop Eval 1 completed: Yes
--- NOTE | 2024-06-20 15:33 | OP.COLON_ITS ---
Patient Name: Rafael Ace Procedure Date: 06/20/2024 2:55 PM Date of : 1965 Age: 58 Procedure: Colonoscopy Indications: High risk colon cancer surveillance: Personal history of colonic polyps Providers: Dusty Woodard DO Referring MD: Magdiel Mendoza Medicines: Monitored Anesthesia Care Patient Profile: This is a 58 year old male. Refer to note in patient chart for documentation of history and physical. Patient has symptoms of chronic heartburn. Last Colonoscopy: 1 year ago. Complications: No immediate complications. Procedure: Pre-Anesthesia Assessment: - Prior to the procedure, a History and Physical was performed, and patient medications and allergies were reviewed. The patient is competent. The risks and benefits of the procedure and the sedation options and risks were discussed with the patient. All questions were answered and informed consent was obtained. Patient identification and proposed procedure were verified by the physician in the pre-procedure area. Mental Status Examination: alert and oriented. Airway Examination: normal oropharyngeal airway and neck mobility. Respiratory Examination: clear to auscultation. CV Examination: normal. Prophylactic Antibiotics: The patient does not require prophylactic antibiotics. Prior Anticoagulants: The patient has taken no anticoagulant or antiplatelet agents except for NSAID medication. ASA Grade Assessment: II - A patient with mild systemic disease. After reviewing the risks and benefits, the patient was deemed in satisfactory condition to undergo the procedure. The anesthesia plan was to use minimal sedation / analgesia (anxiolysis). Immediately prior to administration of medications, the patient was re-assessed for adequacy to receive sedatives. The heart rate, respiratory rate, oxygen saturations, blood pressure, adequacy of pulmonary ventilation, and response to care were monitored throughout the procedure. The physical status of the patient was re-assessed after the procedure. After I obtained informed consent, the scope was passed under direct vision. Throughout the procedure, the patient's blood pressure, pulse, and oxygen saturations were monitored continuously. The colonoscope was introduced through the anus and advanced to the cecum, identified by appendiceal orifice and ileocecal valve. The colonoscopy was performed without difficulty. The patient tolerated the procedure well. The quality of the bowel preparation was adequate. The ileocecal valve, appendiceal orifice, and rectum were photographed. Scope In: 2:57:24 PM Scope Withdrawal Time 0 hours 19 minutes 36 seconds Scope Out: 3:21:17 PM Total Procedure Duration Time 0 hours 23 minutes 53 seconds Findings: The perianal and digital rectal examinations were normal. Three sessile polyps were found in the descending colon, transverse colon and hepatic flexure. The polyps were 7 mm in size. These polyps were removed with a jumbo cold forceps. Resection and retrieval were complete. Verification of patient identification for the specimen was done. Estimated blood loss was minimal. A 14 mm polyp was found in the sigmoid colon. The polyp was sessile. The polyp was removed with a hot snare. Resection and retrieval were complete. Verification of patient identification for the specimen was done. Estimated blood loss was minimal. Multiple small-mouthed diverticula were found in the recto-sigmoid colon, sigmoid colon and descending colon. Stool was found in the rectum, in the recto-sigmoid colon, in the sigmoid colon and in the cecum. Impression: - Three 7 mm polyps in the descending colon, in the transverse colon and at the hepatic flexure, removed with a jumbo cold forceps. Resected and retrieved. - One 14 mm polyp in the sigmoid colon, removed with a hot snare. Resected and retrieved. - Diverticulosis in the recto-sigmoid colon, in the sigmoid colon and in the descending colon. - Stool in the rectum, in the recto-sigmoid colon, in the sigmoid colon and in the cecum. Recommendation: - Discharge patient to home. - Resume previous diet. - Continue present medications. - Await pathology results. - Repeat colonoscopy in 2 years for surveillance. Procedure Code(s): --- Professional --- 02327, Colonoscopy, flexible; with removal of tumor(s), polyp(s), or other lesion(s) by snare technique 31887, 59, Colonoscopy, flexible; with biopsy, single or multiple CPT copyright 2021 [employer]. All rights reserved. The codes documented in this report are preliminary and upon keyseating machine set up operator review may be revised to meet current compliance requirements. Dusty Woodard DO 06/20/2024 3:32:44 PM This report has been signed electronically. Number of Addenda: 0 Note Initiated On: 06/20/2024 2:55 PM
--- NOTE | 2024-06-20 15:33 | OP.CCLET_ITS ---
06/20/2024 Magdiel Mendoza Re : Colonoscopy procedure for Rafael Mendoza This procedure was performed on Thursday, June 20, 2024. My impressions and recommendations are as follows: Impressions : - Three 7 mm polyps in the descending colon, in the transverse colon and at the hepatic flexure, removed with a jumbo cold forceps. Resected and retrieved. - One 14 mm polyp in the sigmoid colon, removed with a hot snare. Resected and retrieved. - Diverticulosis in the recto-sigmoid colon, in the sigmoid colon and in the descending colon. - Stool in the rectum, in the recto-sigmoid colon, in the sigmoid colon and in the cecum. Recommendations : - Discharge patient to home. - Resume previous diet. - Continue present medications. - Await pathology results. - Repeat colonoscopy in 2 years for surveillance. My findings are described in the full procedure note, which is enclosed. If I can be of further assistance, please feel free to contact me at . Sincerely, Dusty Woodard, 06/20/2024 3:32:44 PM This report has been signed electronically.
--- NOTE | 2024-06-20 16:08 | PCM.POSTANE2 ---
Anesthesia Postop Eval I Sum Postop Eval Completion status Anesthesia document: Postop Eval 1 completed: Yes Anesthesia Postop Eval I Summary Anesthesia Postop Eval I Summary: Anesthesia Postop Eval I: Assessment Summary Airway patent Yes 06/20/24 15:31 [email or web address] Spontaneous unlabored Yes 06/20/24 15:31 [email or web address] respirations Mental status Asleep 06/20/24 15:31 [email or web address] nausea No 06/20/24 15:31 [email or web address] Vomiting No 06/20/24 15:31 [email or web address] Anesthesia Postop Eval I: Fluid Summary Crystalloid volume administer 65 06/20/24 15:31 [email or web address] (ml) Colloids volume administered ( ml) Blood Product volume administered (ml) Total IV fluid infused 65 06/20/24 15:31 [email or web address] Anesthesia Postop Eval I: Summary Notes Anesthesia Complication No 06/20/24 15:31 [email or web address] Anesthesia Complication Comment: Post-operative progress note Anesthesia: Postop Eval II Evaluation Mental status: Awake and Calm Pain Level: 0 nausea: No Vomiting: No Complications Anesthesia Complication: No
== END 2024-06-20 16:24 | disposition home or self-care (01) ==
LOC: EN 12:49 → AC 12:51
PROVIDERS: PCP Family Medicine; Referring Provider Family Medicine; Visit Provider Internal Medicine Gastroenterology
PROC: 0DJD8ZZ Inspection of Lower Intestinal Tract, Via Natural or Artificial Opening Endoscopic (ICD-10-PCS; CPT 45378; principal; 2024-06-20 14:25)
DX: K22.70 Barrett's esophagus without dysplasia (principal); K44.9 Diaphragmatic hernia without obstruction or gangrene; I10 Essential (primary) hypertension; E78.00 Pure hypercholesterolemia, unspecified; K57.30 Diverticulosis of large intestine without perforation or abscess without bleeding; D12.3 Benign neoplasm of transverse colon; D12.5 Benign neoplasm of sigmoid colon; D12.8 Benign neoplasm of rectum; F17.220 Nicotine dependence, chewing tobacco, uncomplicated; Z79.899 Other long term (current) drug therapy; Z79.51 Long term (current) use of inhaled steroids; Z86.0100 Personal history of colon polyps, unspecified
CPT/HCPCS: 45385; 45380; 43239; 88305; 88312; 88341; 88342; J2405

== ENCOUNTER → 2024-07-25 | Outpatient (CLI) | payer BC, SELFPAY ==
[2024-07-25 15:52] LABS: PSA,Total - Annual Screen 0.73 ng/mL (0.00-4.00)
== END | disposition home or self-care (01) ==
LOC: LAB 14:18
PROVIDERS: PCP Family Medicine; Referring Provider Internal Medicine Gastroenterology; Visit Provider Internal Medicine Gastroenterology
DX: Z12.5 Encounter for screening for malignant neoplasm of prostate (principal)
CPT/HCPCS: 36415; 84153; G0103

== ENCOUNTER 2024-11-12 17:05 | Emergency (ER) | payer BC, SELFPAY ==
[2024-11-12 17:06] VITALS: BP 156/89; PULSE 72; RESP 18; TEMP 36.4; O2SAT 97; BMI 31.1
--- NOTE | 2024-11-12 18:41 | EX.ED.VISEXT ---
HPI History of Present Illness HPI Narrative: 59-year-old male [id number] history of hypertension. Unknown last tetanus greater than 10 years. Today he was hiking with his dogs he went down to pet one of the dogs and just was excited and bit him on his right hand dorsum at the MCP of the long finger. This occurred about 2 hours ago. No other injuries. Chief Complaint: Bite Informant: patient and spouse/S.O. Occured/Mechanism Mechanism/Context: Yes injury Comment: Dog bite right hand. Onset/Context/Timing Onset: Today and Hours Context: Sudden Onset Timing: Continuous Current Severity: Mild Maximum Severity: Mild Associated Symptoms Associated Symptoms: Negative for Parasthesia, Weakness or Loss of Funtion Narrative Narrative: 59-year-old male dog bite right hand. Tetanus Immunization: >10 years Prior similar symptoms: No Recent Illness/Hospitalization: No ROS ROS ED ROS Narrative Denies recent illness Constitutional Constitutional ED: Denies chills or fever(s) Eyes Eyes: Denies blurry vision ENT ENT ED: Denies ear pain Cardiovascular Cardiovascular: Denies chest pain Respiratory/Chest Respiratory/Chest: Denies cough or dyspnea Gastrointestinal Gastrointestinal: Denies abdominal pain Genitourinary Genitourinary ED: Denies dysuria or hematuria Musculoskeletal Musculoskeletal: Denies arthralgias or back pain Integumentary Denies abscess Neurologic Neurologic: Denies headache(s) Psychiatric Psychiatric: Denies anxiety or depression Endocrine Endocrinology: Denies polydipsia Hematologic/Lymphatic Hematologic/Lymphatic: Denies easy bleeding, easy bruising or lymphadenopathy Allergic/Immunologic Allergic/Immunologic ED: Denies mouth swelling, tongue swelling or urticaria PFSH PFSH Medical History High cholesterol Chewing tobacco nicotine dependence Loss of hearing Anxiety Alcohol use Back pain Injury of back Asthma Leg cramps History of stress test Positive colorectal cancer screening using Cologuard test Reactive airway disease Allergic rhinitis HLD (hyperlipidemia) Hypertension Home Medications ?Medication ?Instructions ?Recorded ?Last Taken ?Type montelukast 10 mg tablet 10 mg PO DAILY 06/14/22 06/20/24 History simvastatin 20 mg tablet 20 mg PO QHS 06/14/22 06/20/24 History nebivolol 10 mg tablet 10 mg PO DAILY 12/08/22 06/20/24 History albuterol 90 mcg-budesonide 80 2 inh inhalation ONCE 12/08/23 Unknown History mcg/actuation HFA aerosol inhaler (Airsupra) amlodipine 5 mg tablet 5 mg PO QDAY 12/08/23 06/20/24 History fluticasone fur. 200 mcg-umeclid 1 inh inhalation DAILY 12/08/23 06/20/24 History 62.5 mcg-vilant 25 mcg inhalat.powder (Trelegy Ellipta) budesonide-formoterol HFA 80 1 puff inhalation ONCE 09/09/24 Unknown History mcg-4.5 mcg/actuation aerosol inhaler (Symbicort) amoxicillin 875 mg-potassium 1 tab PO BID 5 days #10 tabs 11/12/24 Unknown Rx clavulanate 125 mg tablet Allergy/AdvReac Type Severity Reaction Status Date / Time procaine (From Novocain) Allergy Mild Rash Verified 11/12/24 17:06 hydrocodone (From Vicodin) AdvReac Intermediate Other Verified 11/12/24 17:06 Family History Other Heart disease Myocardial infarction Surgical History Hx of colonoscopy with polypectomy Hx of wisdom tooth extraction Hx of oral surgery Social History Smoking Status: Current some day smoker tobacco type: smokeless tobacco Smokeless tobacco user: chewing tobacco alcohol intake: current alcohol intake frequency: a few times a week EXAM Physical Exam Narrative Exam Narrative: Well-appearing 59-year-old male. Vital signs stable afebrile. Lungs clear. Heart regular rhythm. Right hand dorsum of his right hand there is a circular area of skin missing where he was bit by his dog. It involves the skin and subcu tissue. You can see the sheath of the extensor tendon but it is intact. He has full flexion extension all digits of the hand. Normal touch sensation and cap refill. He cannot extend the right long finger against resistance. Otherwise his exam is unremarkable. Const Vital Signs: 11/12/24 17:06 Temperature 97.5 F L Temperature Source Temporal Pulse Rate 72 Respiratory Rate 18 Blood Pressure 156/89 H Blood Pressure Mean 111 Pulse Ox 97 Oxygen Delivery Method Room Air Positive well nourished and well developed; Negative for cachectic, contractures or unkempt General Appearance ED: well developed and NAD; Negative for unkempt, cachectic or contractures Nutritional Appearance: Negative for cachectic HEENT Reports moist mucous membranes normocephalic and atraumatic Eyes PERRL and EOMs intact bilaterally Neck full ROM and no lymphadenopathy Resp normal respiratory effort and clear to auscultation bilaterally Cardio regular rate, regular rhythm, S1 normal heart sound, S2 normal heart sound and no murmurs GI non-tender, non-distended and no masses Palpation: soft; Negative for tender or guarding Extremity full ROM; Negative for normal to inspection Extremity Narrative: Dog bite right hand dorsum over the long finger MCP area about the size of a dime missing tissue. Can see the tendon sheath. No laceration. Full range of motion. Normal sensation. Nontender no bony deformity. No signs of infection or foreign body. General Extremety ED: Negative for deformity or edema General Extremity: Negative for deformity or edema Neuro oriented x3, CN's II-XII intact bilaterally and no sensory deficits noted Sensorium / Orientation: alert, oriented to person, oriented to place, oriented to time and orientation impaired Motor Exam: strength 5/5 throughout Psych mental status grossly normal and thought process normal Appearance: Negative for unkempt Skin skin turgor normal Skin Narrative: Dog bite right hand missing skin over the metacarpophalangeal joint of the right long finger on the dorsum. Lesions: no lesions Rashes: no rashes MDM MDM MDM Narrative Medical decision making narrative: 59-year-old male dog bite right hand it will need suture repaired. Be placed on Augmentin for 5 days. Tetanus will be updated. Laceration repair. Washed and irrigated thoroughly. Explored. Discharged to home. Sutures out in 10 to 14 days. Augmentin 875 twice daily for 5 days to try to prevent dog bite infection. Follow-up with any issues. Instructed on wound care. History & Record Review Discussion w/independent historian: Patient Additional record(s) reviewed:: Prior outpatient record, Prior ED visit and Prior labs Procedures Lacerations Right hand dog bite laceration repair:: Length: 3 in Depth: Sub Q Shape: Circular tissue avulsion Prep: Nader Laceration repair: Irrigated, Lidocaine, Local, Skin sutures and Wound explored Number of Sutures/Sussy: 6 Suture Information: Ethilon, Simple and 4-0 Discharge Plan Triage Chief Complaint: Bite ED Provider: Lester Dhaliwal Dx/Rx/DC Orders Clinical Impression: Dog bite, Hand laceration Instructions: ED Dog Bite, ED Laceration, Hand: All Closures Prescriptions: New amoxicillin-pot clavulanate 875-125 mg tablet 1 tab PO BID 5 Days Qty: 10 0RF No Action montelukast 10 mg tablet 10 mg PO DAILY simvastatin 20 mg tablet 20 mg PO QHS amlodipine 5 mg tablet 5 mg PO QDAY Trelegy Ellipta 200-62.5-25 mcg blister with device 1 inh inhalation DAILY Airsupra 90-80 mcg/actuation HFA aerosol inhaler 2 inh inhalation ONCE Rx Instructions: as a single dose; may repeat up to 6 doses per day (12 inhalations) budesonide-formoterol [Symbicort] 80-4.5 mcg/actuation HFA aerosol inhaler 1 puff inhalation ONCE nebivolol 10 mg tablet 10 mg PO DAILY Primary Care Provider: Magdiel Mendoza Referrals: Magdiel Mendoza DO [Primary Care Provider] - 10-14 Days suture removal Activity Restrictions/Additional Instructions: Ice and elevate to decrease pain and swelling. The antibiotic Augmentin 1 pill twice a day. Take it with food on your stomach. This is to try to prevent any dogbite infection. Clean daily with soap and water. Apply antibiotic ointment daily. Do not let it soak in any water. If it gets wet drying off thoroughly. Stitches out in 10 to 14 days. Any signs of infection such as pus, redness, streaks, swelling return. Or fever Motrin and Tylenol for pain. Print Language: Kinyarwanda Disposition Disposition: Home, Self Care
[2024-11-12] MEDS: Diphth,Pertuss(Acell),Tet Vac 0.5 ML Vial IM (18:54)
[2024-11-12 20:07] VITALS: BP 167/97; PULSE 73; RESP 16; O2SAT 94
== END 2024-11-12 20:08 | disposition home or self-care (01) ==
PROVIDERS: Emergency Provider Emergency Medicine; PCP Family Medicine; Visit Provider Emergency Medicine
DX: S61.451A Open bite of right hand, initial encounter (principal); S61.411A Laceration without foreign body of right hand, initial encounter; W54.0XXA Bitten by dog, initial encounter
CPT/HCPCS: 12002; 90471; 90715; 99283